=== PATIENT | female | born 1980 ===

== ENCOUNTER 2016-12-28 11:28 | Emergency (ER) | payer SELFPAY ==
[2016-12-28 11:34] VITALS: BP 112/74; PULSE 77; RESP 18; TEMP 98.2; O2SAT 99; BMI 26.2
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
== END 2016-12-28 13:18 | disposition home or self-care (01) ==
LOC: H.ER 11:28
DX: F07.81 Postconcussional syndrome (principal); S09.90XA Unspecified injury of head, initial encounter; Y04.8XXA Assault by other bodily force, initial encounter; R09.81 Nasal congestion

== ENCOUNTER 2017-01-06 10:36 | Emergency (ER) | payer SELFPAY ==
[2017-01-06 10:36] VITALS: BMI 26.2
[2017-01-06 11:13] VITALS: BP 131/85; PULSE 74; RESP 17; TEMP 98.9; O2SAT 100
[2017-01-06] MEDS ORDERED: Sodium Chloride 0.9% 1,000 ML IV STA (12:09)
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
[2017-01-06 12:59] LABS: BASO # 0.1 K/uL (0.0-0.2); BASO % 0.4 % (0.0-2.0); EOS # 0.1 K/uL (0.0-0.7); EOS % 0.5 % (0.0-4.0); HEMATOCRIT 37.9 % (34.0-47.0); LYMPH # 1.8 K/uL (1.0-4.3); LYMPH % 15.4 % (20.0-40.0); MEAN CELL VOLUME 89.1 fl (81.0-99.0); MEAN CORPUSCULAR HEMOGLOBIN 30.4 pg (27.0-31.0); MEAN CORPUSCULAR HGB CONC 34.1 g/dL (33.0-37.0); MEAN PLATELET VOLUME 8.1 fl (7.2-11.7); MONO # 0.5 K/uL (0.0-0.8); MONO % 4.2 % (0.0-10.0); NEUT # 9.2 K/uL (1.8-7.0); NEUT % 79.5 % (50.0-75.0); RED CELL DISTRIBUTION WIDTH 13.7 % (11.5-14.5); WHITE BLOOD COUNT 11.5 K/uL (4.8-10.8)
[2017-01-06 13:10] LABS: ALB/GLOB RATIO 1.2 (1.0-2.1); ALKALINE PHOSPHATASE 67 U/L (38-126); ALT/SGPT 44 U/L (9-52); AST/SGOT 34 U/L (14-36); BILIRUBIN,TOTAL 0.6 mg/dl (0.2-1.3); BLOOD UREA NITROGEN 9 mg/dl (7-17); CALCIUM 9.4 mg/dL (8.4-10.2); CARBON DIOXIDE 25 mmol/L (22-30); CHLORIDE 103 mmol/L (98-107); GFR AFRICAN-AMERICAN > 60; GLUCOSE,RANDOM 112 mg/dL (65-105); POTASSIUM 4.1 MMOL/L (3.6-5.0); SODIUM 142 mmol/l (132-148); TOTAL PROTEIN 9.1 G/DL (6.3-8.2)
== END 2017-01-06 14:33 | disposition home or self-care (01) ==
LOC: H.ER 10:36
DX: F07.81 Postconcussional syndrome (principal); R42 Dizziness and giddiness; R11.10 Vomiting, unspecified

== ENCOUNTER 2017-06-14 21:26 | Inpatient (IN) | payer MEDICAID, OTHER ==
[2017-06-14 21:26] VITALS: BMI 26.2
[2017-06-14 23:12] LABS: BASO # 0.1 K/uL (0.0-0.2); BASO % 0.6 % (0.0-2.0); EOS # 0.1 K/uL (0.0-0.7); EOS % 1.2 % (0.0-4.0); HEMATOCRIT 14.3 % (34.0-47.0); LYMPH # 2.4 K/uL (1.0-4.3); LYMPH % 25.9 % (20.0-40.0); MEAN CELL VOLUME 82.8 fl (81.0-99.0); MEAN CORPUSCULAR HEMOGLOBIN 26.2 pg (27.0-31.0); MEAN CORPUSCULAR HGB CONC 31.6 g/dL (33.0-37.0); MEAN PLATELET VOLUME 8.3 fl (7.2-11.7); MONO # 0.9 K/uL (0.0-0.8); MONO % 9.8 % (0.0-10.0); NEUT # 5.9 K/uL (1.8-7.0); NEUT % 62.5 % (50.0-75.0); NRBC % 0.6 % (0.0-0.0); RED CELL DISTRIBUTION WIDTH 15.7 % (11.5-14.5); WHITE BLOOD COUNT 9.4 K/uL (4.8-10.8)
[2017-06-14 23:22] LABS: ALB/GLOB RATIO 1.2 (1.0-2.1); ALKALINE PHOSPHATASE 47 U/L (38-126); ALT/SGPT 46 U/L (9-52); AST/SGOT 22 U/L (14-36); BILIRUBIN,TOTAL < 0.1 mg/dl (0.2-1.3); BLOOD UREA NITROGEN 8 mg/dl (7-17); CALCIUM 8.3 mg/dL (8.4-10.2); CARBON DIOXIDE 23 mmol/L (22-30); CHLORIDE 106 mmol/L (98-107); GFR AFRICAN-AMERICAN > 60; GLUCOSE,RANDOM 130 mg/dL (65-105); POTASSIUM 3.6 MMOL/L (3.6-5.0); SODIUM 140 mmol/l (132-148); TOTAL PROTEIN 6.9 G/DL (6.3-8.2)
[2017-06-14] MEDS ORDERED: Sodium Chloride 0.9% 1,000 ML IV STA (23:32)
--- NOTE | 2017-06-14 23:47 | ED PDOC ---
HPI: Female Pain Time Seen by Provider: 06/14/17 22:04 Chief Complaint (Nursing): Female Genitourinary Chief Complaint (Provider): Vaginal bleeding History Per: Patient History/Exam Limitations: no limitations Onset/Duration Of Symptoms: Persistent (1.5 months) Current Symptoms Are (Timing): Still Present Associated Symptoms: Nausea, Vomiting Alleviating Factors: None Additional History Per: Patient Additional Complaint(s): 36yo female, presents to the ED for evaluation of vaginal bleeding for the past month and half. Patient states initially she had been using 4 pads per day but over the past week, she had very heavy bleeding with clots and has been using 8 pads per day. She reports associated light headedness, feeling like she will fall down, headache, cramping, nausea, and had an episode of vomiting this morning. She also reports dyspnea on exertion, but denies chest pain. She reports a history of multiple fibroids in her uterus and was recently started on control pills in attempt to control the bleeding. Patient denies bleeding from any other locations. She was last seen in the women's health clinic in April. She offers no other complaints. PCP: [facility] Abnormal Vaginal Bleeding: Yes Last Menstral Period: currently having her menstrual peroid Past Medical History Reviewed: Historical Data, Nursing Documentation, Vital Signs Vital Signs: Last Vital Signs Temp 98.0 F 06/14/17 21:48 Pulse 88 06/14/17 23:24 Resp 16 06/14/17 23:24 BP 124/71 06/14/17 23:24 Pulse Ox 100 06/14/17 23:24 - Medical History PMH: Denies: Chronic Kidney Disease Other PMH: Uterine Fibroids - Surgical History Surgical History: Cholecystectomy, (x 1) - Family History Family History: States: No Known Family Hx - Living Arrangements Living Arrangements: With Family - Social History Current smoker - smoking cessation education provided: No Ex-Smoker (has not smoked in the last 12 months): No Alcohol: None Drugs: Denies - Home Medications Home Medications: Ambulatory Orders Medication Instructions Recorded Norethindrone-Ethinyl Estrad 1 tab PO DAILY 06/14/17 [Dasetta 1-35-28 Tablet] - Allergies Allergies/Adverse Reactions: Allergies Allergy/AdvReac Type Severity Reaction Status Date / Time No Known Allergies Allergy Verified 06/14/17 21:48 Review of Systems ROS Statement: Except As Marked, All Systems Reviewed And Found Negative (as per HPI) Cardiovascular: Positive for: Light Headedness. Negative for: Chest Pain Respiratory: Positive for: SOB with Exertion Gastrointestinal: Positive for: Nausea, Vomiting Genitourinary Female: Positive for: Vaginal Bleeding Physical Exam - Reviewed Nursing Documentation Reviewed: Yes Vital Signs Reviewed: Yes - Physical Exam Appears: Positive for: In Acute Distress Head Exam: Positive for: ATRAUMATIC, NORMOCEPHALIC Skin: Positive for: Warm, Pallor Eye Exam: Positive for: EOMI, PERRL ENT: Positive for: Other (dry mucus membranes). Negative for: Pharyngeal Erythema, Tonsillar Exudate Neck: Positive for: Painless ROM, Supple Cardiovascular/Chest: Positive for: Regular Rate, Rhythm, Chest Non Tender. Negative for: Murmur Respiratory: Positive for: Normal Breath Sounds. Negative for: Respiratory Distress Gastrointestinal/Abdominal: Positive for: Soft. Negative for: Tenderness Pelvic Exam: Positive for: Other (deferred to failure analysis engineer) Back: Positive for: Normal Inspection. Negative for: Decreased ROM Extremity: Positive for: Normal ROM. Negative for: Deformity Lymphatic: Negative for: Adenopathy Neurologic/Psych: Positive for: Alert. Negative for: Motor/Sensory Deficits - Laboratory Results Result Diagrams: 06/15/17 17:55 06/15/17 05:30 Interpretation Of Abn Labs: PLEASE NOTE: LABS ABOVE ARE NOT THE LABS AT THE TIME OF ER EVALUATION - ECG ECG: Positive for: Interpreted By Me, Viewed By Me ECG Rhythm: Positive for: Sinus Rhythm, Right Bundle Branch Block Interpretation Of Abn EKG: T- wave inversion through V3 Rate: 93 O2 Sat by Pulse Oximetry: 100 (RA) Pulse Ox Interpretation: Normal - Critical Care Total Time (In Min): 30 Documented Critical Care: Time excludes all time spent performint seperately billable procedures Medical Decision Making Medical Decision Making: Time: 2205 Impression: Vaginal bleeding and anemia Plan: -- Labs -- Chest x-ray -- IV Fluids Reassess Time: 0 Labs reviewed and indicate hemoglobin levels of 4.5 Discussed findings with patient and transfusion consent signed. 2 units of cross matched RBC ordered. Case discussed with family practice resident, PEST CONTROL OPERATOR furnace mason and hospitalist furnace mason. Patient to be admitted to ICU. Scribe Attestation: Documented by Khadijah Melo acting as a scribe for Davina Chang MD. Provider Attestation: All medical record entries made by the Scribe were at my direction and personally dictated by me. I have reviewed the chart and agree that the record accurately reflects my personal performance of the history, physical exam, medical decision making, and the department course for this patient. I have also personally directed, reviewed, and agree with the discharge instructions and disposition. Disposition - Clinical Impression Clinical Impression: Anemia, Vaginal bleeding - Patient ED Disposition Is Patient to be Admitted: Yes Counseled Patient/Family Regarding: Studies Performed, Diagnosis - Disposition Disposition Time: 23:30 Condition: CRITICAL - Pt Status Changed To: Hospital Disposition Of: Inpatient - Admit Certification Admit to Inpatient:: After my assessment, the patient will require hospitalization for at least two midnights. This is because of the severity of symptoms shown, intensity of services needed, and/or the medical risk in this patient being treated as an outpatient. - POA Present On Arrival: None
[2017-06-14 23:55] LABS: PARTIAL THROMBOPLASTIN TIME 41.4 Seconds (25.6-37.1)
--- NOTE | 2017-06-15 01:06 | CP.PCM.HP ---
History of Present Illness - History of Present Illness History of Present Illness: [facility] [id number] 36 y/o Libyan speaking pt with PMHx of extensive uterine fibroids presented to [facility] ED with a 1.5 month history of worsening vaginal bleeding. Pt reports she had an IUD removed approximately 05/08 at the [facility] and was started on Ortho Novum . She reports the bleeding started as spotting, and gradually worsened. Over the past few weeks she began using 4 pads per day, but this week, the bleeding became so heavy that she needed to use 8 pads. She reports bleeding was accompanied with clots. She reports associated symptoms consisted of worsening weakness and fatigue, lightheadedness , DEAL/palpitations, cramping abdominal pain, and nausea. She denies any other associated chest pain, urinary symptoms, melena, hematochezia, numbness/ tingling. ROS: 12 points reviewed, found to be negative unless mentioned as above PMD: Dr. Dante Lockwood, [facility], last appt 06/11. Seen at [facility] on 2016 PMHx: HLD ALL: NKDA MEDS: Ortho Novum QD PSurgHx: 1 , laparascopic cholecystectomy, denies post-op bleeding problems PHospHx: denies history of prior blood product tranfusions PGynHx: negative Pap in 2014, TV u/s performed on 11/2016 shows uterus size of 5.6x7.1x9.6cm with multiple fibroids located fundally, anteriorly, and posteriorly. LMP: currently menstruating POBHx: , 1 SAB, no history of hemorrhage SocialHx: denies tobacco, etoh, drug abuse. Last day of sexual activity was 3 days ago with , noticed mild vaginal discomfort during coitus. FamilyHx: denies any history of familial bleeding problems, NV, CAD, Stroke, cancer. ED COURSE: Vitals on presentation: T 98 F, HR 102, BP: 148/79, RR 16, POX 100% RA LABS: CBC: H/H: 4.5/14.3 CMP: WNL COAGS: 13.6/1.2/41.4 UPREG: neg UA: mild blood, trace leukocyte esterase IMAGING: EKG: NSR at approx 100bpm, normal axis, with RBBB and T-wave inversions in precordial leads up to V3. (as interpreted by me) CXR: lung kendrick clear b/l, symmetrical, normal cardiac silhouette, normal CXR ( as interpreted by me) MEDS: 1 L NS Bolus 4 Units PRBCs ordered, tranfusion began in ED CONSULTS: ICU hospitalist: Dr. Tejada OBN Hospitalist Dr. Kinsey Due to critically low Hb and active bleeding, pt was admitted to ICU Pt seen and case discussed with Dr. Tejada, whom agrees plan. Present on Admission - Present on Admission Any Indicators Present on Admission: No Past Patient History - Past Medical History & Family History Past Medical History?: Yes - Past Social History Alcohol: None Drugs: Denies - CARDIAC Hx Cardiac Disorders: No - PULMONARY Hx Respiratory Disorders: No - NEUROLOGICAL Hx Neurological Disorder: No - HEENT Hx HEENT Problems: No - RENAL Hx Chronic Kidney Disease: No - ENDOCRINE/METABOLIC Hx Endocrine Disorders: No - HEMATOLOGICAL/ONCOLOGICAL Hx Blood Disorders: No - INTEGUMENTARY Hx Dermatological Problems: No - MUSCULOSKELETAL/RHEUMATOLOGICAL Hx Musculoskeletal Disorders: No Hx Falls: No - GENITOURINARY/GYNECOLOGICAL Hx Genitourinary Disorders: Yes Other/Comment: fibroids - PSYCHIATRIC Hx Psychophysiologic Disorder: No Hx Substance Use: No - SURGICAL HISTORY Hx Cholecystectomy: Yes - ANESTHESIA Hx Anesthesia: Yes Hx Anesthesia Reactions: No Hx Malignant Hyperthermia: No Meds Allergies/Adverse Reactions: Allergies Allergy/AdvReac Type Severity Reaction Status Date / Time No Known Allergies Allergy Verified 06/14/17 21:48 Physical Exam - Constitutional Appears: Non-toxic, No Acute Distress - Head Exam Head Exam: ATRAUMATIC - Eye Exam Eye Exam: EOMI. absent: Conjunctival injection, Scleral icterus Pupil Exam: PERRL - ENT Exam ENT Exam: Mucous Membranes Moist - Respiratory Exam Respiratory Exam: Clear to Auscultation Bilateral, NORMAL BREATHING PATTERN. absent: Accessory Muscle Use, Rales, Rhonchi, Wheezes - Cardiovascular Exam Cardiovascular Exam: REGULAR RHYTHM, RRR, +S1, +S2, Systolic Murmur (flow murmur ). absent: Tachycardia, Irregular Rhythm, JVD, Rubs, +S4 - GI/Abdominal Exam GI & Abdominal Exam: Normal Bowel Sounds, Soft. absent: Distended, Firm, Guarding, Rigid, Tenderness - Extremities Exam Extremities exam: Positive for: normal capillary refill, normal inspection, pedal pulses present. Negative for: calf tenderness, pedal edema - Back Exam Back exam: NORMAL INSPECTION - Neurological Exam Neurological exam: Alert, CN II-XII Intact, Oriented x3, Reflexes Normal - Psychiatric Exam Psychiatric exam: Normal Affect, Normal Mood - Skin Skin Exam: Dry, Intact, Pallor, Warm Results - Vital Signs Recent Vital Signs: Last Vital Signs Temp 98.0 F 06/14/17 21:48 Pulse 93 H 06/15/17 00:12 Resp 16 06/15/17 00:12 BP 124/71 06/15/17 00:12 Pulse Ox 100 06/14/17 23:57 - Labs Result Diagrams: 06/14/17 22:50 06/14/17 22:50 Labs: Laboratory Results - last 24 hr 06/14/17 06/14/17 06/14/17 22:41 22:50 22:50 WBC 9.4 RBC 1.72 L Hgb 4.5 L* D Hct 14.3 L MCV 82.8 D MCH 26.2 L MCHC 31.6 L RDW 15.7 H Plt Count 305 MPV 8.3 Neut % (Auto) 62.5 Lymph % (Auto) 25.9 Coles % (Auto) 9.8 Eos % (Auto) 1.2 Baso % (Auto) 0.6 Neut # 5.9 Lymph # 2.4 Coles # 0.9 H Eos # 0.1 Baso # 0.1 PT INR APTT Sodium 140 Potassium 3.6 Chloride 106 Carbon Dioxide 23 Anion Gap 14 BUN 8 Creatinine 0.5 L Est GFR ( Amer) > 60 Est GFR (Non-Af Amer) > 60 Random Glucose 130 H Calcium 8.3 L Total Bilirubin < 0.1 L AST 22 ALT 46 Alkaline Phosphatase 47 Total Protein 6.9 Albumin 3.7 Globulin 3.2 Albumin/Globulin Ratio 1.2 Blood Type O POSITIVE Antibody Screen Negative Crossmatch IS Only See Detail BBK History Checked Patient has bt 06/14/17 22:50 WBC RBC Hgb Hct MCV MCH MCHC RDW Plt Count MPV Neut % (Auto) Lymph % (Auto) Coles % (Auto) Eos % (Auto) Baso % (Auto) Neut # Lymph # Coles # Eos # Baso # PT 13.6 H INR 1.2 APTT 41.4 H Sodium Potassium Chloride Carbon Dioxide Anion Gap BUN Creatinine Est GFR ( Amer) Est GFR (Non-Af Amer) Random Glucose Calcium Total Bilirubin AST ALT Alkaline Phosphatase Total Protein Albumin Globulin Albumin/Globulin Ratio Blood Type Antibody Screen Crossmatch IS Only BBK History Checked Assessment & Plan - Assessment and Plan (Free Text) Assessment: 36 y/o with a PMHx of uterine fibroids admitted for severe symptomatic anemia secondary to acute vaginal blood loss. Plan: 1) Symptomatic Anemia -secondary to acute blood loss -H/H on presentation: 4.5/14.3, this is down from 12.9/37.9 in 12/2016 -4 units PRBCs ordered -admitted to ICU for further monitoring -Zofran 4mg IVP Q6H for nausea -Acetominphen 650mg Q6H for fever/pain -regular diet -F/u CBC/coags/CMP in AM -monitor vitals Q4 hrs -f/u TSH, Iron studies, VwF, Factor VIII studies -OBGYN consult appreciated, will follow up recommendations 2) Prophylaxis -SCDs PRN -IV protonix 40mg QD
[2017-06-15 06:18] LABS: BASO # 0.1 K/uL (0.0-0.2); BASO % 0.9 % (0.0-2.0); EOS # 0.2 K/uL (0.0-0.7); EOS % 1.3 % (0.0-4.0); LYMPH # 2.9 K/uL (1.0-4.3); MEAN CELL VOLUME 84.1 fl (81.0-99.0); MEAN CORPUSCULAR HEMOGLOBIN 27.5 pg (27.0-31.0); MEAN CORPUSCULAR HGB CONC 32.7 g/dL (33.0-37.0); MEAN PLATELET VOLUME 8.3 fl (7.2-11.7); MONO # 0.8 K/uL (0.0-0.8); NEUT # 7.7 K/uL (1.8-7.0); NEUT % 65.8 % (50.0-75.0); RED CELL DISTRIBUTION WIDTH 14.8 % (11.5-14.5); WHITE BLOOD COUNT 11.8 K/uL (4.8-10.8)
[2017-06-15 06:30] LABS: ALB/GLOB RATIO 1.1 (1.0-2.1); ALKALINE PHOSPHATASE 44 U/L (38-126); ALT/SGPT 48 U/L (9-52); AST/SGOT 47 U/L (14-36); BILIRUBIN,TOTAL 0.4 mg/dl (0.2-1.3); BLOOD UREA NITROGEN 6 mg/dl (7-17); CALCIUM 7.8 mg/dL (8.4-10.2); CARBON DIOXIDE 22 mmol/L (22-30); CHLORIDE 110 mmol/L (98-107); GFR AFRICAN-AMERICAN > 60; GLUCOSE,RANDOM 113 mg/dL (65-105); POTASSIUM 3.6 MMOL/L (3.6-5.0); SODIUM 141 mmol/l (132-148); TOTAL PROTEIN 6.3 G/DL (6.3-8.2)
--- NOTE | 2017-06-15 07:26 | RAD ---
HISTORY: severe anemia COMPARISON: No prior. FINDINGS: LUNGS: No active pulmonary disease. PLEURA: No significant pleural effusion identified, no pneumothorax apparent. CARDIOVASCULAR: Normal. OSSEOUS STRUCTURES: No significant abnormalities. VISUALIZED UPPER ABDOMEN: Normal. OTHER FINDINGS: None. IMPRESSION: No active disease.
--- NOTE | 2017-06-15 08:07 | CP.CCUPN ---
CCU Subjective - Physician Review Subjective (Free Text): ICU admission and consultation: discussed with Night Hospitalist MD: 36F admitted for severe anemia and vaginal bleeding; worsened over the past 24h prior to admission, but had [employer]EL[employer] procedure done approx. 1 month ago ( uterine fibroids-D&C, IUD removal) and has had unrelenting bleeding since that time. c/ o Generalized weakness and dizziness, less so this Am, Now, receiving 3rd of 4 ordered PRBCs units. Denies any headaches, CP, SOB, rash, fever, chills, abdominal-pelvic pain or change in BMs. Other vitals and I/O's reviewed. Allergies: NKDA ROS: No other pertinent negs or positives on 10+ system review. Outpt Meds: [facility] [place] ----All Nursing and physician documentation reviewed to date; no new pertinent info noted relevant to current medical problems. MAJOR PROBLEMS: 1. Chronic Vaginal / uterine Bleeding 2. Severe Anemia 2 #1, r/o concomitant Fe deficiency state 3. Coagulopathy versus lab error?? PLAN: 1. No severe, massive active bleeding now. PRBCs infusing, IVF hydration. 2. Check repeat coags with full PT, INR and PTT panel. 3. Stable for transfer to regular med/surg bed for further mgmt. and observation. No need for hemodynamic monitoring, no other co-morbidities requiring ICU intervention. CCU Objective - Vital Signs / Intake & Output Vital Signs (Last 4 hours): Vital Signs Temp Pulse Resp BP Pulse Ox 06/15/17 08:00 98.6 F 71 16 104/62 100 06/15/17 06:00 124 H 15 137/77 100 Intake and Output (Last 8hrs): Intake & Output 06/14/17 06/15/17 06/15/17 22:59 06:59 14:59 Intake Total 650 Output Total 500 Balance 150 Weight 131 lb Intake: Blood Product 650 Output: Urine 500 Urine, Voided 500 Other: # Voids Urine, Voided 1 - Physical Exam Head: Positive for: Abrasion Pupils: Positive for: PERRL Extroacular Muscles: Positive for: EOMI Conjunctiva: Positive for: Normal. Negative for: Icteric Mouth: Positive for: Moist Mucous Membranes Neck: Positive for: Normal Range of Motion. Negative for: JVD Respiratory/Chest: Positive for: Clear to Auscultation. Negative for: Accessory Muscle Use, Wheezes Cardiovascular: Positive for: Regular Rate and Rhythm, Normal S1, S2 Abdomen: Positive for: Normal Bowel Sounds. Negative for: Tenderness, Distention, Mass/Organomegaly Lower Extremity: Positive for: Normal Inspection, NORMAL PULSES. Negative for: Edema, CALF TENDERNESS, Cyanosis Neurological: Positive for: GCS=15, Motor Func Grossly Intact, Normal Sensory Function Skin: Positive for: Warm, Dry. Negative for: Rashes Psychiatric: Positive for: Alert, Oriented x 3 - Medications Active Medications: Active Medications Generic Name Dose Route Start Last Admin Trade Name Freq PRN Reason Stop Dose Admin Acetaminophen 650 mg 06/15/17 00:34 Tylenol 325mg Tab PO Q6H PRN Fever >100.4 F Estrogens Conjugated 25 mg 06/15/17 01:20 Premarin Iv IV Q4 PRN bleeding Ondansetron HCl 4 mg 06/15/17 00:50 Zofran Inj IVP Q6 PRN Nausea/Vomiting Pantoprazole Sodium 40 mg 06/15/17 09:00 Protonix Inj IVP DAILY VALERAINO - Patient Studies Lab Studies: Lab Studies 06/15/17 06/15/17 06/15/17 Range/Units 05:30 05:30 05:30 WBC 11.8 H (4.8-10.8) K/uL RBC 2.61 L (3.80-5.20) Mil/uL Hgb 7.2 L D (12.0-16.0) g/dL Hct 22.0 L (34.0-47.0) % MCV 84.1 (81.0-99.0) fl MCH 27.5 (27.0-31.0) pg MCHC 32.7 L (33.0-37.0) g/dL RDW 14.8 H (11.5-14.5) % Plt Count 246 (130-400) K/uL MPV 8.3 (7.2-11.7) fl Neut % (Auto) 65.8 (50.0-75.0) % Lymph % (Auto) 25.0 (20.0-40.0) % [place] % (Auto) 7.0 (0.0-10.0) % Eos % (Auto) 1.3 (0.0-4.0) % Baso % (Auto) 0.9 (0.0-2.0) % Neut # 7.7 H (1.8-7.0) K/uL Lymph # 2.9 (1.0-4.3) K/uL [place] # 0.8 (0.0-0.8) K/uL Eos # 0.2 (0.0-0.7) K/uL Baso # 0.1 (0.0-0.2) K/uL PT 12.2 (9.8-13.1) Seconds INR 1.1 (0.9-1.2) APTT (25.6-37.1) Seconds Sodium 141 (132-148) mmol/l Potassium 3.6 (3.6-5.0) MMOL/L Chloride 110 H (98-107) mmol/L Carbon Dioxide 22 (22-30) mmol/L Anion Gap 13 (10-20) BUN 6 L (7-17) mg/dl Creatinine 0.5 L (0.7-1.2) mg/dL Est GFR ( Amer) > 60 Est GFR (Non-Af Amer) > 60 Random Glucose 113 H (65-105) mg/dL Calcium 7.8 L (8.4-10.2) mg/dL Total Bilirubin 0.4 (0.2-1.3) mg/dl AST 47 H D (14-36) U/L ALT 48 (9-52) U/L Alkaline Phosphatase 44 (38-126) U/L Total Protein 6.3 (6.3-8.2) G/DL Albumin 3.4 L (3.5-5.0) g/dL Globulin 3.0 (2.2-3.9) gm/dL Albumin/Globulin Ratio 1.1 (1.0-2.1) Blood Type Antibody Screen Crossmatch IS Only BBK History Checked 06/14/17 06/14/17 06/14/17 Range/Units 22:50 22:50 22:50 WBC 9.4 (4.8-10.8) K/uL RBC 1.72 L (3.80-5.20) Mil/uL Hgb 4.5 L* D (12.0-16.0) g/dL Hct 14.3 L (34.0-47.0) % MCV 82.8 D (81.0-99.0) fl MCH 26.2 L (27.0-31.0) pg MCHC 31.6 L (33.0-37.0) g/dL RDW 15.7 H (11.5-14.5) % Plt Count 305 (130-400) K/uL MPV 8.3 (7.2-11.7) fl Neut % (Auto) 62.5 (50.0-75.0) % Lymph % (Auto) 25.9 (20.0-40.0) % [place] % (Auto) 9.8 (0.0-10.0) % Eos % (Auto) 1.2 (0.0-4.0) % Baso % (Auto) 0.6 (0.0-2.0) % Neut # 5.9 (1.8-7.0) K/uL Lymph # 2.4 (1.0-4.3) K/uL [place] # 0.9 H (0.0-0.8) K/uL Eos # 0.1 (0.0-0.7) K/uL Baso # 0.1 (0.0-0.2) K/uL PT 13.6 H (9.8-13.1) Seconds INR 1.2 (0.9-1.2) APTT 41.4 H (25.6-37.1) Seconds Sodium 140 (132-148) mmol/l Potassium 3.6 (3.6-5.0) MMOL/L Chloride 106 (98-107) mmol/L Carbon Dioxide 23 (22-30) mmol/L Anion Gap 14 (10-20) BUN 8 (7-17) mg/dl Creatinine 0.5 L (0.7-1.2) mg/dL Est GFR ( Amer) > 60 Est GFR (Non-Af Amer) > 60 Random Glucose 130 H (65-105) mg/dL Calcium 8.3 L (8.4-10.2) mg/dL Total Bilirubin < 0.1 L (0.2-1.3) mg/dl AST 22 (14-36) U/L ALT 46 (9-52) U/L Alkaline Phosphatase 47 (38-126) U/L Total Protein 6.9 (6.3-8.2) G/DL Albumin 3.7 (3.5-5.0) g/dL Globulin 3.2 (2.2-3.9) gm/dL Albumin/Globulin Ratio 1.2 (1.0-2.1) Blood Type Antibody Screen Crossmatch IS Only BBK History Checked 06/14/17 Range/Units 22:41 WBC (4.8-10.8) K/uL RBC (3.80-5.20) Mil/uL Hgb (12.0-16.0) g/dL Hct (34.0-47.0) % MCV (81.0-99.0) fl MCH (27.0-31.0) pg MCHC (33.0-37.0) g/dL RDW (11.5-14.5) % Plt Count (130-400) K/uL MPV (7.2-11.7) fl Neut % (Auto) (50.0-75.0) % Lymph % (Auto) (20.0-40.0) % [place] % (Auto) (0.0-10.0) % Eos % (Auto) (0.0-4.0) % Baso % (Auto) (0.0-2.0) % Neut # (1.8-7.0) K/uL Lymph # (1.0-4.3) K/uL [place] # (0.0-0.8) K/uL Eos # (0.0-0.7) K/uL Baso # (0.0-0.2) K/uL PT (9.8-13.1) Seconds INR (0.9-1.2) APTT (25.6-37.1) Seconds Sodium (132-148) mmol/l Potassium (3.6-5.0) MMOL/L Chloride (98-107) mmol/L Carbon Dioxide (22-30) mmol/L Anion Gap (10-20) BUN (7-17) mg/dl Creatinine (0.7-1.2) mg/dL Est GFR ( Amer) Est GFR (Non-Af Amer) Random Glucose (65-105) mg/dL Calcium (8.4-10.2) mg/dL Total Bilirubin (0.2-1.3) mg/dl AST (14-36) U/L ALT (9-52) U/L Alkaline Phosphatase (38-126) U/L Total Protein (6.3-8.2) G/DL Albumin (3.5-5.0) g/dL Globulin (2.2-3.9) gm/dL Albumin/Globulin Ratio (1.0-2.1) Blood Type O POSITIVE Antibody Screen Negative Crossmatch IS Only See Detail BBK History Checked Patient has bt Laboratory Results - last 24 hr 06/14/17 06/14/17 06/14/17 22:41 22:50 22:50 WBC 9.4 RBC 1.72 L Hgb 4.5 L* D Hct 14.3 L MCV 82.8 D MCH 26.2 L MCHC 31.6 L RDW 15.7 H Plt Count 305 MPV 8.3 Neut % (Auto) 62.5 Lymph % (Auto) 25.9 [place] % (Auto) 9.8 Eos % (Auto) 1.2 Baso % (Auto) 0.6 Neut # 5.9 Lymph # 2.4 [place] # 0.9 H Eos # 0.1 Baso # 0.1 PT INR APTT Sodium 140 Potassium 3.6 Chloride 106 Carbon Dioxide 23 Anion Gap 14 BUN 8 Creatinine 0.5 L Est GFR ( Amer) > 60 Est GFR (Non-Af Amer) > 60 Random Glucose 130 H Calcium 8.3 L Total Bilirubin < 0.1 L AST 22 ALT 46 Alkaline Phosphatase 47 Total Protein 6.9 Albumin 3.7 Globulin 3.2 Albumin/Globulin Ratio 1.2 Blood Type O POSITIVE Antibody Screen Negative Crossmatch IS Only See Detail BBK History Checked Patient has bt 06/14/17 06/15/17 06/15/17 22:50 05:30 05:30 WBC 11.8 H RBC 2.61 L Hgb 7.2 L D Hct 22.0 L MCV 84.1 MCH 27.5 MCHC 32.7 L RDW 14.8 H Plt Count 246 MPV 8.3 Neut % (Auto) 65.8 Lymph % (Auto) 25.0 [place] % (Auto) 7.0 Eos % (Auto) 1.3 Baso % (Auto) 0.9 Neut # 7.7 H Lymph # 2.9 [place] # 0.8 Eos # 0.2 Baso # 0.1 PT 13.6 H 12.2 INR 1.2 1.1 APTT 41.4 H Sodium Potassium Chloride Carbon Dioxide Anion Gap BUN Creatinine Est GFR ( Amer) Est GFR (Non-Af Amer) Random Glucose Calcium Total Bilirubin AST ALT Alkaline Phosphatase Total Protein Albumin Globulin Albumin/Globulin Ratio Blood Type Antibody Screen Crossmatch IS Only BBK History Checked 06/15/17 05:30 WBC RBC Hgb Hct MCV MCH MCHC RDW Plt Count MPV Neut % (Auto) Lymph % (Auto) [place] % (Auto) Eos % (Auto) Baso % (Auto) Neut # Lymph # [place] # Eos # Baso # PT INR APTT Sodium 141 Potassium 3.6 Chloride 110 H Carbon Dioxide 22 Anion Gap 13 BUN 6 L Creatinine 0.5 L Est GFR ( Amer) > 60 Est GFR (Non-Af Amer) > 60 Random Glucose 113 H Calcium 7.8 L Total Bilirubin 0.4 AST 47 H D ALT 48 Alkaline Phosphatase 44 Total Protein 6.3 Albumin 3.4 L Globulin 3.0 Albumin/Globulin Ratio 1.1 Blood Type Antibody Screen Crossmatch IS Only BBK History Checked Review of Systems - Review of Systems All systems: reviewed and no additional remarkable complaints except (as above) Critical Care Progress Note - Nutrition Nutrition: Nutrition Category Date Time Status Regular Diet [DIET] Diets 06/15/17 Breakfast Active
[2017-06-15 08:08] LABS: IRON 36 ug/dL (37-170)
[2017-06-15 08:10] LABS: THYROID STIMULATING HORMONE 3.29 mIU/ML (0.46-4.68)
[2017-06-15] MEDS ORDERED: Chlorhexidine Gluconate 1 APPL/PKT TP ONE (08:59)
--- NOTE | 2017-06-15 09:08 | CARD ---
APPROVED REPORT EKG Measurement Heart [id number] <Conclusion> Normal sinus rhythm Incomplete right bundle branch block T wave abnormality, consider anterior ischemia Abnormal ECG
--- NOTE | 2017-06-15 10:00 | CP.PCM.CON ---
Addendum entered and electronically signed by Brandt Cruz MD 06/15/17 17:18: . Addendum entered and electronically signed by Brandt Cruz MD 06/15/17 14:01: Update for plan of treatment. Discussed with Dr. Vincent: Bleeding is controlled. Follow up H/H s/p 4 units of PRBC. Pt encouraged to follow up in outpatient clinic. Recommend: hysteroscopic myomectomy. Addendum entered and electronically signed by Brandt Cruz MD 06/15/17 10:47: Case discussed with Dr. Kinsey. Original Note: <Brandt Cruz - Last Filed: 06/15/17 10:45> History of Present Illness - History of Present Illness History of Present Illness: Pam Cheney is a pleasant 36 yo lady who presented to the ED due to weakness, dizziness, nausea, SOB s/p vaginal bleed. LMP 06/03/2017 with heavy bleeding containing clots for 10 day duration. Menses is irregular. OCPs (Ortho-Novum 1mg/35mcg) started 05/08/2017; Denies perimenstrual spotting/bleed. She shares of receiving OCP via injection around 6 + years ago. Unknown if it was depo. Pt was last seen by Dr. Sigala on 05/08/2017 for irregular menses and for IUD ( mirena placed 2010) removal due to pelvic pain; TVUS: on 12/20/2016: (6) fibroids: Fundal fibroid 3.4x5.6x9.6; ant fibroid in body of uterus 1.2x1.96; submucosal 10mm; submucosal posterior 12mm; posterior fibroid at lower uterine segment 16mm; posterior fibroid 7mm; ObHx: term NVD x2: 2004 M; 2010 F; c/s term due to breech presentation 2006 F; Denies history of STI; last pap was 1 year ago: negative. PMHx: none PFHx: Mother with ovarian cyst; negative for DM/HTN/Cancer/myoma PSurgHx: Laparoscopic cholecystectomy, Section SocHx: Denies smoking/alcohol/illicit drugs meds: not taking any medications Allergies: NKDA Initial Hgb: 4.5/14.3 Ordered to Transfuse 4 units After 2 units transfused: Hgb: 7.2/22.0 Review of Systems - Review of Systems Systems not reviewed;Unavailable: Language Barrier - Constitutional Constitutional: As Per HPI - Reproductive: Female Reproductive:Female: Heavy Menses, Abnormal Vaginal Bleeding - Menstruation Menstruation: Abnormal Vaginal Bleeding Past Patient History - Past Medical History & Family History Past Medical History?: Yes Pertinent Family History: Mother with ovarian cysts - Past Social History Smoking Status: Never Smoked Alcohol: None Drugs: Denies Home Situation {Lives}: With Family - CARDIAC Hx Cardiac Disorders: No Hx Heart Attack: No - PULMONARY Hx Respiratory Disorders: No - NEUROLOGICAL Hx Neurological Disorder: No HX Cerebrovascular Accident: No Other/Comment: No history of stroke - HEENT Hx HEENT Problems: No - RENAL Hx Chronic Kidney Disease: No - ENDOCRINE/METABOLIC Hx Endocrine Disorders: No - HEMATOLOGICAL/ONCOLOGICAL Hx Blood Disorders: No Other/Comment: no history of DVT/clots/hypercoaguability - INTEGUMENTARY Hx Dermatological Problems: No - MUSCULOSKELETAL/RHEUMATOLOGICAL Hx Musculoskeletal Disorders: No Hx Falls: No - GENITOURINARY/GYNECOLOGICAL Hx Genitourinary Disorders: Yes Other/Comment: fibroids - PSYCHIATRIC Hx Psychophysiologic Disorder: No Hx Substance Use: No - SURGICAL HISTORY Hx Section: Yes (2006) Hx Cholecystectomy: Yes - ANESTHESIA Hx Anesthesia: Yes Hx Anesthesia Reactions: No Hx Malignant Hyperthermia: No Meds Allergies/Adverse Reactions: Allergies Allergy/AdvReac Type Severity Reaction Status Date / Time No Known Allergies Allergy Verified 06/14/17 21:48 - Medications Medications: Current Medications Acetaminophen (Tylenol 325mg Tab) 650 mg PO Q6H PRN PRN Reason: Fever >100.4 F Estrogens Conjugated (Premarin Iv) 25 mg IV Q4 PRN PRN Reason: bleeding Ondansetron HCl (Zofran Inj) 4 mg IVP Q6 PRN PRN Reason: Nausea/Vomiting Pantoprazole Sodium (Protonix Inj) 40 mg IVP DAILY VALERIANO Last Admin: 06/15/17 08:38 Dose: 40 mg Physical Exam - Eye Exam Eye Exam: EOMI, Normal appearance - Neck Exam Neck exam: Positive for: Full Rom - Respiratory Exam Respiratory Exam: Clear to Auscultation Bilateral, NORMAL BREATHING PATTERN - Cardiovascular Exam Cardiovascular Exam: REGULAR RHYTHM, +S1, +S2 - GI/Abdominal Exam GI & Abdominal Exam: Normal Bowel Sounds, Soft - Exam Speculum exam: Vaginal Bleeding. absent: Foreign Body, Laceration Bimanual exam: absent: Cervical Motion Tendernes - Extremities Exam Extremities exam: Positive for: normal inspection. Negative for: calf tenderness, pedal edema - Back Exam Back exam: absent: CVA tenderness (L), CVA tenderness (R) - Neurological Exam Neurological exam: Alert, Oriented x3 - Psychiatric Exam Psychiatric exam: Normal Affect, Normal Mood Results - Vital Signs Recent Vital Signs: Last Vital Signs Temp 98.6 F 06/15/17 08:00 Pulse 71 06/15/17 08:00 Resp 16 06/15/17 08:00 BP 104/62 06/15/17 08:00 Pulse Ox 100 06/15/17 08:00 - Labs Result Diagrams: 06/15/17 05:30 06/15/17 05:30 Labs: Laboratory Results - last 24 hr 06/14/17 06/14/17 06/14/17 22:41 22:50 22:50 WBC 9.4 RBC 1.72 L Hgb 4.5 L* D Hct 14.3 L MCV 82.8 D MCH 26.2 L MCHC 31.6 L RDW 15.7 H Plt Count 305 MPV 8.3 Neut % (Auto) 62.5 Lymph % (Auto) 25.9 [place] % (Auto) 9.8 Eos % (Auto) 1.2 Baso % (Auto) 0.6 Neut # 5.9 Lymph # 2.4 [place] # 0.9 H Eos # 0.1 Baso # 0.1 PT INR APTT Sodium 140 Potassium 3.6 Chloride 106 Carbon Dioxide 23 Anion Gap 14 BUN 8 Creatinine 0.5 L Est GFR ( Amer) > 60 Est GFR (Non-Af Amer) > 60 Random Glucose 130 H Calcium 8.3 L Iron TIBC % Saturation Ferritin Total Bilirubin < 0.1 L AST 22 ALT 46 Alkaline Phosphatase 47 Total Protein 6.9 Albumin 3.7 Globulin 3.2 Albumin/Globulin Ratio 1.2 TSH 3rd Generation Blood Type O POSITIVE Antibody Screen Negative Crossmatch IS Only See Detail BBK History Checked Patient has bt 06/14/17 06/15/17 06/15/17 22:50 05:30 05:30 WBC 11.8 H RBC 2.61 L Hgb 7.2 L D Hct 22.0 L MCV 84.1 MCH 27.5 MCHC 32.7 L RDW 14.8 H Plt Count 246 MPV 8.3 Neut % (Auto) 65.8 Lymph % (Auto) 25.0 [place] % (Auto) 7.0 Eos % (Auto) 1.3 Baso % (Auto) 0.9 Neut # 7.7 H Lymph # 2.9 [place] # 0.8 Eos # 0.2 Baso # 0.1 PT 13.6 H 12.2 INR 1.2 1.1 APTT 41.4 H Sodium Potassium Chloride Carbon Dioxide Anion Gap BUN Creatinine Est GFR ( Amer) Est GFR (Non-Af Amer) Random Glucose Calcium Iron TIBC % Saturation Ferritin Total Bilirubin AST ALT Alkaline Phosphatase Total Protein Albumin Globulin Albumin/Globulin Ratio TSH 3rd Generation Blood Type Antibody Screen Crossmatch IS Only BBK History Checked 06/15/17 06/15/17 05:30 05:30 WBC RBC Hgb Hct MCV MCH MCHC RDW Plt Count MPV Neut % (Auto) Lymph % (Auto) [place] % (Auto) Eos % (Auto) Baso % (Auto) Neut # Lymph # [place] # Eos # Baso # PT INR APTT Sodium 141 Potassium 3.6 Chloride 110 H Carbon Dioxide 22 Anion Gap 13 BUN 6 L Creatinine 0.5 L Est GFR ( Amer) > 60 Est GFR (Non-Af Amer) > 60 Random Glucose 113 H Calcium 7.8 L Iron 36 L TIBC 390 % Saturation 9 L Ferritin 3.4 L Total Bilirubin 0.4 AST 47 H D ALT 48 Alkaline Phosphatase 44 Total Protein 6.3 Albumin 3.4 L Globulin 3.0 Albumin/Globulin Ratio 1.1 TSH 3rd Generation 3.29 Blood Type Antibody Screen Crossmatch IS Only BBK History Checked Assessment & Plan - Assessment and Plan (Free Text) Plan: Pam Cheney is a pleasant 36 yo lady who presented with symptomatic anemia 2/2 vaginal bleeding. Pt seen and evaluated at bedside s/p 2 units of PRBC. 1) Abnormal Uterine Bleed -IUD Mirena removed 05/08/2017 -Started on Ortho-Novum 05/08/2017 -Menstral bleed with clots x 10 days -Hx of several fibroids, 2 submucosal 2)Symptomatic Anemia - 2/2 Abnormal vaginal bleed likely from submucosal fibromas (x2) - 4 units of PRBC orded; 2 already given. - Premarin IV - follow repeat H/H and coagulation studies - continue monitoring symptoms of weakness, dizziness, Headaches, vaginal bleed , pelvic pain - Vitals stable; continue to monitor Discussed with patient about options for treatment which includes: - changing OCP - hysteroscopy with resection of submucosal fibroids - partial hysterectomy was also present in the room; Brandt Cruz, PGY1 <Lisa Kinsey S - Last Filed: 06/16/17 10:24> History of Present Illness - History of Present Illness History of Present Illness: Late Entry: Patient seen and examined by me on 06/14/[address] Glez, PGY 1. Patient states when she had the Mirena IUD she did not have problems with bleeding however she needed it removed because time had she actually waited 1 additional year for removal and had removed at 6 years and also for complaints of pelvic pain. Following removal of her IUD she was started on oral contraceptive pills by Dr. Jovon hutchinson. Patient states complaints of heavy bleeding associated with clot since the 10th of this month she states that for the past week the bleeding had increased and was associated with acute shortness of breath and lightheadedness she denies loss of consciousness. I: Menorrhagia most likely secondary to submucosal fibroids Symptomatic anemia Plan: Meds - Medications Medications: Current Medications Acetaminophen (Tylenol 325mg Tab) 650 mg PO Q6H PRN PRN Reason: Fever >100.4 F Estrogens Conjugated (Premarin Iv) 25 mg IV Q4 PRN PRN Reason: bleeding Ondansetron HCl (Zofran Inj) 4 mg IVP Q6 PRN PRN Reason: Nausea/Vomiting Pantoprazole Sodium (Protonix Inj) 40 mg IVP DAILY VALERIANO Last Admin: 06/16/17 08:19 Dose: 40 mg Physical Exam - Head Exam Head Exam: ATRAUMATIC, NORMOCEPHALIC - Exam Speculum exam: absent: Vaginal Bleeding (On speculum exam old dark blood was noted within the vault: No active cervical bleeding present) Results - Vital Signs Recent Vital Signs: Last Vital Signs Temp 98.7 F 06/16/17 08:14 Pulse 68 06/16/17 08:14 Resp 19 06/16/17 08:14 BP 113/72 06/16/17 08:14 Pulse Ox 99 06/16/17 08:14 - Labs Result Diagrams: 06/15/17 17:55 06/15/17 05:30 Labs: Laboratory Results - last 24 hr 06/14/17 06/15/17 22:41 17:55 WBC 10.6 RBC 3.59 L Hgb 10.1 L D Hct 29.8 L MCV 82.8 MCH 28.1 MCHC 33.9 RDW 14.6 H Plt Count 237 Blood Type O POSITIVE Antibody Screen Negative Crossmatch IS Only See Detail BBK History Checked Patient has bt Assessment & Plan - Assessment and Plan (Free Text) Assessment: I: Menorrhagia most likely secondary to submucosal fibroids- resolved on presentation Symptomatic anemia Plan: Premarin IV was ordered but not administered secondary to absence of active bleeding. Patient is to follow-up with Dr. Sigala within 1 week for discussion of surgical management with hysteroscopy
[2017-06-15 18:28] LABS: HEMATOCRIT 29.8 % (34.0-47.0); MEAN CELL VOLUME 82.8 fl (81.0-99.0); MEAN CORPUSCULAR HEMOGLOBIN 28.1 pg (27.0-31.0); MEAN CORPUSCULAR HGB CONC 33.9 g/dL (33.0-37.0); RED CELL DISTRIBUTION WIDTH 14.6 % (11.5-14.5); WHITE BLOOD COUNT 10.6 K/uL (4.8-10.8)
[2017-06-16 08:15] VITALS: BP 113/72; RESP 19; TEMP 98.7
--- NOTE | 2017-06-16 08:27 | CP.PCM.DIS ---
Provider - Provider Date of Admission: 06/14/17 23:25 Attending physician: Nando Scott MD Time Spent in preparation of Discharge (in minutes): 35 Diagnosis - Discharge Diagnosis (1) Acute post-hemorrhagic anemia Status: Acute Hospital Course - Lab Results Lab Results: Most Recent Lab Values WBC 10.6 K/uL (4.8-10.8) 06/15/17 17:55 RBC 3.59 Mil/uL (3.80-5.20) L 06/15/17 17:55 Hgb 10.1 g/dL (12.0-16.0) L D 06/15/17 17:55 Hct 29.8 % (34.0-47.0) L 06/15/17 17:55 MCV 82.8 fl (81.0-99.0) 06/15/17 17:55 MCH 28.1 pg (27.0-31.0) 06/15/17 17:55 MCHC 33.9 g/dL (33.0-37.0) 06/15/17 17:55 RDW 14.6 % (11.5-14.5) H 06/15/17 17:55 Plt Count 237 K/uL (130-400) 06/15/17 17:55 MPV 8.3 fl (7.2-11.7) 06/15/17 05:30 Neut % (Auto) 65.8 % (50.0-75.0) 06/15/17 05:30 Lymph % (Auto) 25.0 % (20.0-40.0) 06/15/17 05:30 [place] % (Auto) 7.0 % (0.0-10.0) 06/15/17 05:30 Eos % (Auto) 1.3 % (0.0-4.0) 06/15/17 05:30 Baso % (Auto) 0.9 % (0.0-2.0) 06/15/17 05:30 Neut # 7.7 K/uL (1.8-7.0) H 06/15/17 05:30 Lymph # 2.9 K/uL (1.0-4.3) 06/15/17 05:30 [place] # 0.8 K/uL (0.0-0.8) 06/15/17 05:30 Eos # 0.2 K/uL (0.0-0.7) 06/15/17 05:30 Baso # 0.1 K/uL (0.0-0.2) 06/15/17 05:30 PT 12.2 Seconds (9.8-13.1) 06/15/17 05:30 INR 1.1 (0.9-1.2) 06/15/17 05:30 APTT 41.4 Seconds (25.6-37.1) H 06/14/17 22:50 Sodium 141 mmol/l (132-148) 06/15/17 05:30 Potassium 3.6 MMOL/L (3.6-5.0) 06/15/17 05:30 Chloride 110 mmol/L (98-107) H 06/15/17 05:30 Carbon Dioxide 22 mmol/L (22-30) 06/15/17 05:30 Anion Gap 13 (10-20) 06/15/17 05:30 BUN 6 mg/dl (7-17) L 06/15/17 05:30 Creatinine 0.5 mg/dL (0.7-1.2) L 06/15/17 05:30 Est GFR ( Amer) > 60 06/15/17 05:30 Est GFR (Non-Af Amer) > 60 06/15/17 05:30 Random Glucose 113 mg/dL (65-105) H 06/15/17 05:30 Calcium 7.8 mg/dL (8.4-10.2) L 06/15/17 05:30 Iron 36 ug/dL (37-170) L 06/15/17 05:30 TIBC 390 ug/dL (250-450) 06/15/17 05:30 % Saturation 9 % (20-55) L 06/15/17 05:30 Ferritin 3.4 ng/Ml (6.24-137.0) L 06/15/17 05:30 Total Bilirubin 0.4 mg/dl (0.2-1.3) 06/15/17 05:30 AST 47 U/L (14-36) H D 06/15/17 05:30 ALT 48 U/L (9-52) 06/15/17 05:30 Alkaline Phosphatase 44 U/L (38-126) 06/15/17 05:30 Total Protein 6.3 G/DL (6.3-8.2) 06/15/17 05:30 Albumin 3.4 g/dL (3.5-5.0) L 06/15/17 05:30 Globulin 3.0 gm/dL (2.2-3.9) 06/15/17 05:30 Albumin/Globulin Ratio 1.1 (1.0-2.1) 06/15/17 05:30 TSH 3rd Generation 3.29 mIU/ML (0.46-4.68) 06/15/17 05:30 Blood Type O POSITIVE 06/14/17 22:41 Antibody Screen Negative 06/14/17 22:41 Crossmatch IS Only See Detail 06/14/17 22:41 BBK History Checked Patient has bt 06/14/17 22:41 - Hospital Course Hospital Course: 36 y/o with a PMHx of extensive uterine fibroids was admitted for symptomatic anemia secondary to acute blood loss from uterine bleeding. pt was tranfused 4 units of PRBCs, Hb improved from 4.5 to 10.1 After an uneventful hospital stay, pt was discharged in stable condition. Meds: Provera 10mg PO x 5days Ferrous Sulfate 325mg PO BID Colace 100mg PO BID with FeSO4 Discharge Exam - Head Exam Head Exam: ATRAUMATIC - Eye Exam Eye Exam: EOMI Pupil Exam: PERRL - ENT Exam ENT Exam: Mucous Membranes Moist - Respiratory Exam Respiratory Exam: Clear to PA & Lateral, NORMAL BREATHING PATTERN, UNREMARKABLE - Cardiovascular Exam Cardiovascular Exam: REGULAR RHYTHM - GI/Abdominal Exam GI & Abdominal Exam: Normal Bowel Sounds, Unremarkable - Extremities Exam Extremities exam: normal inspection - Neurological Exam Neurological exam: Alert, CN II-XII Intact, Oriented x3 - Psychiatric Exam Psychiatric exam: Normal Affect, Normal Mood - Skin Skin Exam: Dry, Intact, Normal Color, Warm Discharge Plan - Follow Up Plan Condition: STABLE Disposition: HOME/ ROUTINE Instructions: Iron Supplements (By mouth), Medroxyprogesterone (By mouth), Laxative, Stool Softeners (By mouth), Iron Rich Diet (DC), Anemia (DC) Additional Instructions: F/U appointment with Dr. Sigala scheduled for at 2:15 at [facility] Referrals: [facility] [Outside] Potter-Jacinta Mercado MD [Staff Provider] - Cooper Fletcher MD [Family Provider] -
--- NOTE | 2017-06-16 12:27 | US ---
HISTORY: fibroids COMPARISON: 12/20/2016 TECHNIQUE: Transvaginal only. Real -time technique with 2D, duplex and color Doppler FINDINGS: UTERUS: Measures 9.4 x 6 x 9.5 cm. Normal in size and appearance. Multiple (4) uterine fibroids summarized as follows: 1. Fundal fibroid 4 x 3.8 x 4.3 cm. 2. Submucosal fibroid 1.8 x 1.3 x 1.2 cm. 3. Posterior fibroid 1.8 x 1.4 x 1.7 cm. 4. Lower uterine segment midline 7 x 8 x 8 mm. ENDOMETRIUM: Measures 3.8 mm in diameter. No ultrasound findings to suggest gestational sac, fluid, debris, mass or polyp or other pathologic process within the endometrium. CERVIX: No cervical abnormality identified. RIGHT OVARY: Measures 1.9 x 2 x 2.3 cm. No solid mass. Normal flow. Multiple subcentimeter follicles. LEFT OVARY: Measures 1.9 x 3 x 2.9 cm. No solid mass. Normal flow. Multiple subcentimeter follicles. FREE FLUID: No significant free fluid noted. OTHER FINDINGS: None. IMPRESSION: Mildly enlarged heterogeneous uterus with multiple (4) uterine fibroids which are stable compared to the prior study. Several fibroids identified previously are not visualized with certainty on the current study. No significant interval change compared to the prior examination(s).
[2017-06-18 14:49] LABS: VON WILLERBRAND FACTOR AG 127 % (50-217)
[2017-06-18 15:06] VITALS: PULSE 93; O2SAT 100
== END 2017-06-16 14:19 | disposition home or self-care (01) | DRG 812 ==
LOC: H.ER 21:26 → H.ERHOLD 23:25 → H.ICU/CCU 06-15 01:24 → H.MEDSURG1 06-15 12:35
PROVIDERS: ADMIT Family Medicine; ATTEND Family Medicine
PROC: 30233N1 Transfusion of Nonautologous Red Blood Cells into Peripheral Vein, Percutaneous Approach (ICD-10-PCS; principal; 2017-06-15)
DX: D62 Acute posthemorrhagic anemia (principal); D25.0 Submucous leiomyoma of uterus; E78.5 Hyperlipidemia, unspecified; N92.0 Excessive and frequent menstruation with regular cycle

== ENCOUNTER 2017-08-30 03:51 | Inpatient (IN) | payer SELFPAY ==
[2017-08-30 03:52] VITALS: BMI 26.2
[2017-08-30] MEDS ORDERED: Sodium Chloride 0.9% 1,000 ML IV STA ×2 (04:34→05:48)
--- NOTE | 2017-08-30 04:52 | ED PDOC ---
Addendum entered and electronically signed by Jaqueline Stoll PA-C 08/30/17 05:59: Addendum Addendum: 08/30/17 05:58 ekg: NSR, ST/T wave nonspefic, no ST elevation Original Note: HPI: Female Pain Time Seen by Provider: 08/30/17 04:43 Chief Complaint (Nursing): Female Genitourinary Chief Complaint (Provider): vaginal bleeding. Associated Symptoms: denies: Fever, Chills, Nausea, Vomiting Additional Complaint(s): 37yo F in ED for eval of vaginal bleeding since yesterday with clots. pt has hx of uterine fibroids and has f.u appointment with MD Howard for further evaluation/IUD placement. pt with hx of anemia. pt currently taking methyprogesterone. pt admits to associated dizziness and nausea with heavy bleeding and pain. Past Medical History Reviewed: Historical Data, Nursing Documentation, Vital Signs Vital Signs: Last Vital Signs Temp 97.6 F 08/30/17 04:16 Pulse 92 H 08/30/17 04:16 Resp 18 08/30/17 04:16 BP 115/69 08/30/17 04:16 Pulse Ox 100 08/30/17 04:16 - Medical History PMH: Denies: Chronic Kidney Disease - Surgical History Surgical History: Cholecystectomy, (x 1) - Family History Family History: States: Unknown Family Hx - Home Medications Home Medications: Ambulatory Orders Medication Instructions Recorded Norethindrone-Ethinyl Estrad 1 tab PO DAILY 06/14/17 [Dasetta 1-35-28 Tablet] - Allergies Allergies/Adverse Reactions: Allergies Allergy/AdvReac Type Severity Reaction Status Date / Time No Known Allergies Allergy Verified 06/14/17 21:48 Review of Systems ROS Statement: Except As Marked, All Systems Reviewed And Found Negative Genitourinary Female: Positive for: Vaginal Bleeding Physical Exam - Reviewed Nursing Documentation Reviewed: Yes Vital Signs Reviewed: Yes - Physical Exam Appears: Positive for: Non-toxic, No Acute Distress, Uncomfortable Skin: Positive for: Warm, Pallor Cardiovascular/Chest: Positive for: Regular Rate, Rhythm Respiratory: Positive for: CNT, Normal Breath Sounds Gastrointestinal/Abdominal: Positive for: Normal Exam, Bowel Sounds, Soft, Tenderness Back: Positive for: Normal Inspection. Negative for: L CVA Tenderness, R CVA Tenderness Neurologic/Psych: Positive for: Alert, Oriented - Laboratory Results Result Diagrams: 08/30/17 04:40 08/30/17 04:40 - ECG O2 Sat by Pulse Oximetry: 100 - Progress ED Course And Treament: Orders Category Date Time Status TYPE AND SCREEN Stat BBK 08/30/17 04:34 Ordered COMP METABOLIC PANEL Stat Chem 08/30/17 04:34 Ordered CBC (WITH DIFFERENTIAL) Stat URMILA 08/30/17 04:34 Ordered PROTHROMBIN TIME [COAG] Stat URMILA 08/30/17 04:45 Ordered PTT [PARTIAL THROMBOPLASTIN TIME] [COAG] Stat URMILA 08/30/17 04:45 Ordered Acetaminophen [Tylenol 325mg tab] Med 08/30/17 04:53 Stat 650 mg PO STAT STA Ketorolac [Toradol] Med 08/30/17 04:52 Stat 30 mg IVP STAT STA Sodium Chloride 0.9% 1,000 ml Med 08/30/17 04:34 Active IV 1,000 mls/hr Magnetic Testing Technician ONCE NURSING 08/30/17 04:34 Active Medical Decision Making Medical Decision Making: pt with anemia at 5.2hgb pt will need admission for transfusion OB-hospitalist consulted will see pt pt will be admitted to family medicine pt agrees with admission and understands need. pt is less pale, no longer dizzy. Vital Signs - 24 hr 08/30/17 08/30/17 04:16 05:49 Temperature 97.6 F Pulse Rate 92 H Respiratory 18 Rate Blood Pressure 115/69 O2 Sat by Pulse 100 100 Oximetry Disposition - Clinical Impression Clinical Impression: Vaginal bleeding, Anemia - Patient ED Disposition Is Patient to be Admitted: Yes - Disposition Disposition Time: 05:52 Condition: FAIR Forms: Lono (Belarusian) - Pt Status Changed To: Hospital Disposition Of: Inpatient - Admit Certification Admit to Inpatient:: After my assessment, the patient will require hospitalization for at least two midnights. This is because of the severity of symptoms shown, intensity of services needed, and/or the medical risk in this patient being treated as an outpatient. - POA Present On Arrival: None
[2017-08-30 05:12] LABS: ALB/GLOB RATIO 1.2 (1.0-2.1); ALBUMIN 3.8 g/dL (3.5-5.0); ALT/SGPT 52 U/L (9-52); AST/SGOT 24 U/L (14-36); BLOOD UREA NITROGEN 11 mg/dl (7-17); CALCIUM 8.4 mg/dL (8.4-10.2); GFR AFRICAN-AMERICAN > 60; GFR NON-AFRICAN AMERICAN > 60
[2017-08-30 05:15] LABS: INR 1.2 (0.9-1.2); PARTIAL THROMBOPLASTIN TIME 22.8 Seconds (25.6-37.1); PROTHROMBIN TIME 12.9 Seconds (9.8-13.1)
[2017-08-30 05:28] LABS: BASO # 0.1 K/uL (0.0-0.2); BASO % 0.6 % (0.0-2.0); EOS % 0.2 % (0.0-4.0); LYMPH # 1.3 K/uL (1.0-4.3); LYMPH % 12.5 % (20.0-40.0); MEAN CELL VOLUME 81.9 fl (81.0-99.0); MEAN CORPUSCULAR HEMOGLOBIN 25.8 pg (27.0-31.0); MEAN CORPUSCULAR HGB CONC 31.5 g/dL (33.0-37.0); MEAN PLATELET VOLUME 8.4 fl (7.2-11.7); MONO # 0.6 K/uL (0.0-0.8); MONO % 5.9 % (0.0-10.0); NEUT # 8.4 K/uL (1.8-7.0); NEUT % 80.8 % (50.0-75.0); NRBC % 0.2 % (0.0-0.0); RED CELL DISTRIBUTION WIDTH 17.3 % (11.5-14.5); WHITE BLOOD COUNT 10.4 K/uL (4.8-10.8)
[2017-08-30 05:38] LABS: HEMOGLOBIN 5.2 g/dL (12.0-16.0)
--- NOTE | 2017-08-30 06:54 | CP.PCM.HP ---
History of Present Illness - History of Present Illness History of Present Illness: CC: vaginal bleeding HPI: 37 y/o woman w/ pmh of leiomyoma and irregular menses since 11/2016 presents to ED for severe vaginal bleeding. Patient reports bleeding started 3 days ago consistent with her period and was normal the next day. However, last night into this morning the bleeding was worse. Patient noted mostly clots. Patient reports associated lower abdominal pain, dizziness, weakness, and nausea. Patient took tylenol with no relief. Patient denies headache, chest pain, SOB, fever, vomiting, and dysuria. Patient is , x2 , x1 C- section, x1 SAB. Patient denies history of STDs. Last Pap smear was 2015 and was negative for intraepithelial lesion or malignancy. Patient was admitted on 06/14/2016 for similar complaints, went to ICU, received 4 units PRBCs. Patient just started her period, had one 07/2017 but none 06/2017. Duration of periods has been ranging for 7-9 days. Patient reports periods have become irregular since diagnosis of leiomyoma in 11/2016. [facility] has appointment w/ Dr. Sigala 09/02/2017 ED course: vitals: 99.1 f, 95 bpm, 129/70 mm Hg, resp 18, O2 99% RA CBC: 10.4>5.2/16.4<294 PTT: 22.8 PT: 12.9 INR: 1.2 CMP: 138/3.7, 107/23, 11/0.6, glucose 166, AST 24, ALT 52 type and screen: EKG: NSR, T wave inversion in anterolateral leads, no ST segment elevation/ depression, widened QRS or CO CXR: (preliminary) no active disease PRBC x2 IVF NS bolus x2 toradol 30 mg IV once tylenol 650 mg PO once [facility] allergies: NKDA Meds: OCP ortho-novum PO daily PMH: uterine fibroids PSH: x1 2006, cholecystectomy 04/2016 Fam: denies Hx of medical problems SOC: denies smoking, alcohol, and drugs ROS: 12 points assessed and negative unless otherwise reported in HPI Present on Admission - Present on Admission Any Indicators Present on Admission: No History of DVT/PE: No History of Uncontrolled Diabetes: No Urinary Catheter: No Decubitus Ulcer Present: No Review of Systems - Review of Systems All systems: reviewed and no additional remarkable complaints except - Constitutional Constitutional: Weakness. absent: Fever, Headache - EENT Eyes: absent: Change in Vision - Cardiovascular Cardiovascular: absent: Chest Pain, Leg Edema, Palpitations, Pedal Edema - Respiratory Respiratory: absent: Dyspnea, Wheezing - Gastrointestinal Gastrointestinal: Abdominal Pain, Nausea. absent: Diarrhea, Vomiting - Genitourinary Genitourinary: absent: Dysuria - Reproductive: Female Reproductive:Female: Amenorrhea, Menses Variable, Abnormal Vaginal Bleeding - Menstruation Menstruation: Currently Menstual, Menses >/= 8 Days, Abnormal Vaginal Bleeding - Integumentary Integumentary: absent: Rash - Neurological Neurological: Dizziness, Weakness. absent: Headaches Past Patient History - Past Medical History & Family History Past Medical History?: Yes - Past Social History Smoking Status: Never Smoked - CARDIAC Hx Cardiac Disorders: No - PULMONARY Hx Respiratory Disorders: No - NEUROLOGICAL Hx Neurological Disorder: No - HEENT Hx HEENT Problems: No - RENAL Hx Chronic Kidney Disease: No - ENDOCRINE/METABOLIC Hx Endocrine Disorders: No - HEMATOLOGICAL/ONCOLOGICAL Hx Blood Disorders: Yes Hx Anemia: Yes - INTEGUMENTARY Hx Dermatological Problems: No - MUSCULOSKELETAL/RHEUMATOLOGICAL Hx Musculoskeletal Disorders: No - GENITOURINARY/GYNECOLOGICAL Hx Genitourinary Disorders: Yes Other/Comment: fibroids - PSYCHIATRIC Hx Psychophysiologic Disorder: No Hx Substance Use: No - SURGICAL HISTORY Hx Cholecystectomy: Yes - ANESTHESIA Hx Anesthesia: Yes Hx Anesthesia Reactions: No Hx Malignant Hyperthermia: No Meds Allergies/Adverse Reactions: Allergies Allergy/AdvReac Type Severity Reaction Status Date / Time No Known Allergies Allergy Verified 06/14/17 21:48 Physical Exam - Constitutional Appears: No Acute Distress - Head Exam Head Exam: ATRAUMATIC, NORMAL INSPECTION, NORMOCEPHALIC - Eye Exam Eye Exam: Normal appearance - ENT Exam ENT Exam: Mucous Membranes Dry Additional comments: pale mucous membranes - Neck Exam Neck exam: Positive for: Full Rom, Normal Inspection. Negative for: Tenderness - Respiratory Exam Respiratory Exam: Clear to Auscultation Bilateral, NORMAL BREATHING PATTERN. absent: Accessory Muscle Use, Decreased Breath Sounds, Rales, Rhonchi, Wheezes, Respiratory Distress - Cardiovascular Exam Cardiovascular Exam: REGULAR RHYTHM, RRR Additional comments: capillary refill <2 seconds - GI/Abdominal Exam GI & Abdominal Exam: Normal Bowel Sounds, Soft, Tenderness (lower abdominal tenderness). absent: Distended - Back Exam Back exam: NORMAL INSPECTION. absent: CVA tenderness (L), CVA tenderness (R), paraspinal tenderness - Neurological Exam Neurological exam: Alert, Oriented x3 - Skin Skin Exam: Dry, Intact, Pallor Results - Vital Signs Recent Vital Signs: Last Vital Signs Temp 97.6 F 08/30/17 04:16 Pulse 95 H 08/30/17 05:53 Resp 18 08/30/17 05:53 BP 129/70 08/30/17 05:53 Pulse Ox 100 08/30/17 05:55 - Labs Result Diagrams: 08/30/17 04:40 08/30/17 04:40 Labs: Laboratory Results - last 24 hr 08/30/17 08/30/17 08/30/17 04:40 04:40 04:40 WBC 10.4 RBC 2.00 L Hgb 5.2 L* D Hct 16.4 L MCV 81.9 MCH 25.8 L MCHC 31.5 L RDW 17.3 H Plt Count 294 MPV 8.4 Neut % (Auto) 80.8 H Lymph % (Auto) 12.5 L [place] % (Auto) 5.9 Eos % (Auto) 0.2 Baso % (Auto) 0.6 Neut # 8.4 H Lymph # 1.3 [place] # 0.6 Eos # 0.0 Baso # 0.1 PT INR APTT Sodium 138 Potassium 3.7 Chloride 107 Carbon Dioxide 23 Anion Gap 12 BUN 11 Creatinine 0.6 L Est GFR ( Amer) > 60 Est GFR (Non-Af Amer) > 60 Random Glucose 166 H Calcium 8.4 Total Bilirubin 0.2 AST 24 ALT 52 Alkaline Phosphatase 49 Total Protein 7.0 Albumin 3.8 Globulin 3.2 Albumin/Globulin Ratio 1.2 Blood Type O POSITIVE Antibody Screen Negative Crossmatch See Detail BBK History Checked Patient has bt 08/30/17 04:40 WBC RBC Hgb Hct MCV MCH MCHC RDW Plt Count MPV Neut % (Auto) Lymph % (Auto) [place] % (Auto) Eos % (Auto) Baso % (Auto) Neut # Lymph # [place] # Eos # Baso # PT 12.9 INR 1.2 APTT 22.8 L Sodium Potassium Chloride Carbon Dioxide Anion Gap BUN Creatinine Est GFR ( Amer) Est GFR (Non-Af Amer) Random Glucose Calcium Total Bilirubin AST ALT Alkaline Phosphatase Total Protein Albumin Globulin Albumin/Globulin Ratio Blood Type Antibody Screen Crossmatch BBK History Checked Assessment & Plan - Assessment and Plan (Free Text) Assessment: 37 y/o woman w/ pmh of leiomyoma and irregular menses since 11/2016 presents to ED for severe vaginal bleeding. Most likely symptomatic aemia secondary to acute vaginal blood loss Plan: Symptomatic anemia - 2/2 acute blood loss - H/H: 5.2/16.4 was 7.9/24.5 in 07/2017 - 3 units PRBC ordered - vitals stable - admit to MedSurg - zofran 4 mg IVP Q6h for nausea prn - tylenol 650 mg PO Q6h for fever/pain prn - motrin 600 mg PO Q6h for pain prn - monitor vitals - regular diet - f/u iron studies - consider [employer] consultation Prophylactic measures - SCDs, no lovenox due to active vaginal bleeding - protonix 40 mg PO
--- NOTE | 2017-08-30 07:46 | CP.PCM.CON ---
Addendum entered and electronically signed by Brandt Cruz MD 08/30/17 08:57: Speculum and pelvic exam were performed with the following chaperones present throughout the exam: Mya Pugh and Irena Original Note: <Brandt Cruz - Last Filed: 08/30/17 07:54> History of Present Illness - History of Present Illness History of Present Illness: Pam Cheney is a pleasant 37 yo lady presented to the ED with 2 day history of abnormal uterine bleeding, malaise, dizziness and nausea. Her LMP was 08/27/2017, which she stated to be with normal bleeding, however, starting two days ago she shares of greater volume of blood per vagina with clots and symptomatic. She denies loss of consciousness. In november 2016 she experienced abnormal uterine bleeding. US: Submucosal fibroids : 1 anterior 10 mm; 1 posterior 12 mm; fundal 3.4x5.6x3.7 cm; Ant at body: 1.2x1.9cm; posterior lower uterine: 16mm. She had an IUD, which was removed on 05/08/2017. She was previously admitted in 06/14/2017 here for similar symptoms with hgb of 4.5. Admitted to ICU/family medicine and transfused 4 units of PRBC. Symptoms of malaise improved, vaginal bleeding resolved. She was then discharged with provera 10 mg qD x 5 days. She followed up with Dr. Sigala in clinic on 06/19/2017 and started on Ortho Novum 1mg/35mcg qD. She denies history of migraine with aura or history of DVT. PCP: Dr. Lockwood obhx: c/s x1 09/26 breech presentation; x2 full term 2004 M; 2010 F; gyne: denies history of STIs; pap: negative 2015 MedHx: leiomyoma, anemia Famhx: mom with ovarian cyst Surg: cholecystectomy 04/2016; c/s 2006; soc: denies: smoking, etoh, illicit drugs Rx: FeSO4, OrthoNovum NKDA PE: General: Dizziness, nausea have resolved; Weakness and lower abdominal pain present. Pallor: Perioral and digits of extremities; Capillary refill: <2sec Cardiac: S1S1 no murmurs Lungs: clear bilaterally, no wheezing Abdo: bilateral lower abdominal and pelvic tenderness to palpation; Pelvis: Speculum exam: pooling of blood in vaginal vault with clots. Bimanual: cervix closed, negative for CMT. Negative costo-vertbral tenderness; Negative for calf tenderness. Pam Cheney is a pleasant 37 yo lady presenting with menorrhagia 1) Anemia -HH: 5.2/16.4; symptomatic -Admit to med surg -type and screen O+ -transfusion of 2 units PRBC -Discussed options for medical management: continue with orthonorvum; consider IV estrogen [examine for breast nodules], depo provera; possible surgical management of: hysteromyomectomy; Pt shares of desire to have another child. 2) Uterine fibroids/leiomyomas -US: from 11/2015; stat transvaginal US to measure progression of fibroids Follow up with Dr. Sigala in clinic: scheduled for 09/02/2017; Signing off Gyne service; Please reconsult if needed. Case d/w Dr. Lobo Cruz MD PGY-1 Past Patient History - Past Medical History & Family History Past Medical History?: Yes - Past Social History Smoking Status: Never Smoked - CARDIAC Hx Cardiac Disorders: No - PULMONARY Hx Respiratory Disorders: No - NEUROLOGICAL Hx Neurological Disorder: No - HEENT Hx HEENT Problems: No - RENAL Hx Chronic Kidney Disease: No - ENDOCRINE/METABOLIC Hx Endocrine Disorders: No - HEMATOLOGICAL/ONCOLOGICAL Hx Blood Disorders: Yes Hx Anemia: Yes - INTEGUMENTARY Hx Dermatological Problems: No - MUSCULOSKELETAL/RHEUMATOLOGICAL Hx Musculoskeletal Disorders: No - GENITOURINARY/GYNECOLOGICAL Hx Genitourinary Disorders: Yes Other/Comment: fibroids - PSYCHIATRIC Hx Psychophysiologic Disorder: No Hx Substance Use: No - SURGICAL HISTORY Hx Cholecystectomy: Yes - ANESTHESIA Hx Anesthesia: Yes Hx Anesthesia Reactions: No Hx Malignant Hyperthermia: No Meds Allergies/Adverse Reactions: Allergies Allergy/AdvReac Type Severity Reaction Status Date / Time No Known Allergies Allergy Verified 06/14/17 21:48 - Medications Medications: Current Medications Acetaminophen (Tylenol 325mg Tab) 650 mg PO Q6 PRN PRN Reason: Pain, Mild (1-3) Acetaminophen (Tylenol 325mg Tab) 650 mg PO Q6 PRN PRN Reason: Fever >100.4 F Ibuprofen (Motrin Tab) 600 mg PO Q6H PRN PRN Reason: Pain, moderate (4-7) Ondansetron HCl (Zofran Inj) 4 mg IVP Q6 PRN PRN Reason: Nausea/Vomiting Results - Vital Signs Recent Vital Signs: Last Vital Signs Temp 99.1 F 08/30/17 06:30 Pulse 95 H 08/30/17 06:30 Resp 18 08/30/17 06:30 BP 129/70 08/30/17 06:30 Pulse Ox 99 08/30/17 06:30 - Labs Result Diagrams: 08/30/17 04:40 08/30/17 04:40 Labs: Laboratory Results - last 24 hr 08/30/17 08/30/17 08/30/17 04:40 04:40 04:40 WBC 10.4 RBC 2.00 L Hgb 5.2 L* D Hct 16.4 L MCV 81.9 MCH 25.8 L MCHC 31.5 L RDW 17.3 H Plt Count 294 MPV 8.4 Neut % (Auto) 80.8 H Lymph % (Auto) 12.5 L [place] % (Auto) 5.9 Eos % (Auto) 0.2 Baso % (Auto) 0.6 Neut # 8.4 H Lymph # 1.3 [place] # 0.6 Eos # 0.0 Baso # 0.1 PT INR APTT Sodium 138 Potassium 3.7 Chloride 107 Carbon Dioxide 23 Anion Gap 12 BUN 11 Creatinine 0.6 L Est GFR ( Amer) > 60 Est GFR (Non-Af Amer) > 60 Random Glucose 166 H Calcium 8.4 Total Bilirubin 0.2 AST 24 ALT 52 Alkaline Phosphatase 49 Total Protein 7.0 Albumin 3.8 Globulin 3.2 Albumin/Globulin Ratio 1.2 Blood Type O POSITIVE Antibody Screen Negative Crossmatch See Detail BBK History Checked Patient has bt 08/30/17 04:40 WBC RBC Hgb Hct MCV MCH MCHC RDW Plt Count MPV Neut % (Auto) Lymph % (Auto) [place] % (Auto) Eos % (Auto) Baso % (Auto) Neut # Lymph # [place] # Eos # Baso # PT 12.9 INR 1.2 APTT 22.8 L Sodium Potassium Chloride Carbon Dioxide Anion Gap BUN Creatinine Est GFR ( Amer) Est GFR (Non-Af Amer) Random Glucose Calcium Total Bilirubin AST ALT Alkaline Phosphatase Total Protein Albumin Globulin Albumin/Globulin Ratio Blood Type Antibody Screen Crossmatch BBK History Checked <Russell Diamond - Last Filed: 08/30/17 19:06> Meds - Medications Medications: Current Medications Acetaminophen (Tylenol 325mg Tab) 650 mg PO Q6 PRN PRN Reason: Pain, Mild (1-3) Acetaminophen (Tylenol 325mg Tab) 650 mg PO Q6 PRN PRN Reason: Fever >100.4 F Ibuprofen (Motrin Tab) 600 mg PO Q6H PRN PRN Reason: Pain, moderate (4-7) Medroxyprogesterone Acetate (Provera) 10 mg PO DAILY [facility] Last Admin: 08/30/17 12:05 Dose: 10 mg Ondansetron HCl (Zofran Inj) 4 mg IVP Q6 PRN PRN Reason: Nausea/Vomiting Results - Vital Signs Recent Vital Signs: Last Vital Signs Temp 98.6 F 08/30/17 17:00 Pulse 90 08/30/17 17:00 Resp 18 08/30/17 17:00 BP 105/70 08/30/17 17:00 Pulse Ox 98 08/30/17 17:00 - Labs Result Diagrams: 08/30/17 04:40 08/30/17 04:40 Labs: Laboratory Results - last 24 hr 08/30/17 08/30/17 08/30/17 04:40 04:40 04:40 WBC 10.4 RBC 2.00 L Hgb 5.2 L* D Hct 16.4 L MCV 81.9 MCH 25.8 L MCHC 31.5 L RDW 17.3 H Plt Count 294 MPV 8.4 Neut % (Auto) 80.8 H Lymph % (Auto) 12.5 L [place] % (Auto) 5.9 Eos % (Auto) 0.2 Baso % (Auto) 0.6 Neut # 8.4 H Lymph # 1.3 [place] # 0.6 Eos # 0.0 Baso # 0.1 PT INR APTT Sodium 138 Potassium 3.7 Chloride 107 Carbon Dioxide 23 Anion Gap 12 BUN 11 Creatinine 0.6 L Est GFR ( Amer) > 60 Est GFR (Non-Af Amer) > 60 Random Glucose 166 H Calcium 8.4 Ferritin Total Bilirubin 0.2 AST 24 ALT 52 Alkaline Phosphatase 49 Total Protein 7.0 Albumin 3.8 Globulin 3.2 Albumin/Globulin Ratio 1.2 Blood Type O POSITIVE Antibody Screen Negative Crossmatch See Detail BBK History Checked Patient has bt 08/30/17 08/30/17 04:40 07:16 WBC RBC Hgb Hct MCV MCH MCHC RDW Plt Count MPV Neut % (Auto) Lymph % (Auto) [place] % (Auto) Eos % (Auto) Baso % (Auto) Neut # Lymph # [place] # Eos # Baso # PT 12.9 INR 1.2 APTT 22.8 L Sodium Potassium Chloride Carbon Dioxide Anion Gap BUN Creatinine Est GFR ( Amer) Est GFR (Non-Af Amer) Random Glucose Calcium Ferritin 4.3 L Total Bilirubin AST ALT Alkaline Phosphatase Total Protein Albumin Globulin Albumin/Globulin Ratio Blood Type Antibody Screen Crossmatch BBK History Checked Assessment & Plan - Assessment and Plan (Free Text) Assessment: Menorrhagia/anemia/fibroid uterus Plan: With PGY1, Case was discussed and agree with transfusion...follow up with PMD after discharge - Date & Time Date: 08/30/17 Time: 19:00
--- NOTE | 2017-08-30 08:12 | RAD ---
HISTORY: medical ex COMPARISON: 06/14/2017 FINDINGS: LUNGS: No active pulmonary disease. PLEURA: No significant pleural effusion identified, no pneumothorax apparent. CARDIOVASCULAR: Heart is normal in size and unchanged. OSSEOUS STRUCTURES: No significant abnormalities. VISUALIZED UPPER ABDOMEN: Normal. OTHER FINDINGS: Surgical clips are seen in the right upper quadrant. Trachea is midline. IMPRESSION: No active disease.
--- NOTE | 2017-08-30 12:13 | CARD ---
APPROVED REPORT EKG Measurement Heart [id number] <Conclusion> Normal sinus rhythm Nonspecific ST and T wave abnormality Abnormal ECG
--- NOTE | 2017-08-30 12:25 | US ---
HISTORY: pelvic bleeding COMPARISON: None available. TECHNIQUE: Transabdominal and transvaginal ultrasound examination of the pelvis was performed. FINDINGS: UTERUS: Measures 10.6 x 6.3 x 7.5. Cm. Uterus is mildly enlarged. scar is noted. Visualized cervix is unremarkable. There is evidence of a 6.3 x 6.3 x 5.5 right-sided uterine fundal fibroid. This is displacing the endometrial complex to the left. There is mild heterogeneity of the overall myometrial echotexture suggestive of myomatous changes. ENDOMETRIUM: Measures 8 mm in diameter. No appreciable endometrial complex mass is noted. No appreciable residual retained IUD is noted with a history of IUD removal in April 2017. No fluid is seen in the endometrial canal. CERVIX: No cervical abnormality identified. RIGHT OVARY: Measures 2.4 x 1.9 x 1.8 cm. So only seen transabdominally and is otherwise normal in size and echogenicity. Normal flow. LEFT OVARY: Measures 4.6 x 3.2 by 3.2 cm. There is a 4 x 4 by 2.6 centimeter hypoechoic simple left ovarian cyst without mural nodule or wall thickening. This occupies a large portion of the left ovary. Normal flow. FREE FLUID: No significant free fluid noted. OTHER FINDINGS: None. IMPRESSION: Mildly enlarged fibroid uterus with dominant right-sided uterine fibroid appreciated. No endometrial complex mass. Simple left ovarian cyst. Follow-up ultrasound in 6 weeks to assess for resolution is suggested.
[2017-08-31 08:19] LABS: MEAN CELL VOLUME 85.5 fl (81.0-99.0); MEAN CORPUSCULAR HEMOGLOBIN 28.2 pg (27.0-31.0); MEAN CORPUSCULAR HGB CONC 32.9 g/dL (33.0-37.0); RBC 1.96 Mil/uL (3.80-5.20); RED CELL DISTRIBUTION WIDTH 17.1 % (11.5-14.5); WHITE BLOOD COUNT 10.7 K/uL (4.8-10.8)
[2017-08-31 08:39] LABS: HEMOGLOBIN 5.5 g/dL (12.0-16.0)
--- NOTE | 2017-08-31 09:12 | CP.PCM.PN ---
Subjective - Date & Time of Evaluation Date of Evaluation: 08/31/17 Time of Evaluation: 09:10 - Subjective Subjective: No acute overnight events. Pt received 2 units of PRBC thus far. She states that she feels better this AM. Pt states that she is still bleeding, but its better then yesterday. Endorses soreness in the suprabuic area, headache, and fatigue but states that its better then last night. Denies chest pain, dyspnea, dizziness, n/v/d/c and remains afebrile. Objective - Vital Signs/Intake and Output Vital Signs (last 24 hours): Temp Pulse Resp BP Pulse Ox 98.8 F 84 20 114/68 98 08/31/17 07:53 08/31/17 07:53 08/31/17 07:53 08/31/17 07:53 08/31/17 07:53 - Medications Medications: Current Medications Acetaminophen (Tylenol 325mg Tab) 650 mg PO Q6 PRN PRN Reason: Pain, Mild (1-3) Last Admin: 08/31/17 09:00 Dose: 650 mg Acetaminophen (Tylenol 325mg Tab) 650 mg PO Q6 PRN PRN Reason: Fever >100.4 F Ibuprofen (Motrin Tab) 600 mg PO Q6H PRN PRN Reason: Pain, moderate (4-7) Medroxyprogesterone Acetate (Provera) 10 mg PO DAILY [facility] Last Admin: 08/31/17 09:00 Dose: 10 mg Ondansetron HCl (Zofran Inj) 4 mg IVP Q6 PRN PRN Reason: Nausea/Vomiting - Labs Labs: 08/31/17 07:20 08/30/17 04:40 PT 12.9 Seconds (9.8-13.1) 08/30/17 04:40 INR 1.2 (0.9-1.2) 08/30/17 04:40 APTT 22.8 Seconds (25.6-37.1) L 08/30/17 04:40 - Constitutional Appears: No Acute Distress, Other (looks pale) - Head Exam Head Exam: ATRAUMATIC, NORMAL INSPECTION - Eye Exam Eye Exam: EOMI, Normal appearance - ENT Exam ENT Exam: Mucous Membranes Moist - Neck Exam Neck Exam: Full ROM - Respiratory Exam Respiratory Exam: Clear to Ausculation Bilateral, NORMAL BREATHING PATTERN. absent: Rales, Wheezes - Cardiovascular Exam Cardiovascular Exam: REGULAR RHYTHM, +S1, +S2 - GI/Abdominal Exam GI & Abdominal Exam: Soft, Tenderness (mild tenderness of the suprapubic area), Normal Bowel Sounds - Extremities Exam Extremities Exam: Full ROM, Normal Inspection. absent: Tenderness - Back Exam Back Exam: NORMAL INSPECTION - Neurological Exam Neurological Exam: Alert, Awake, Oriented x3 - Psychiatric Exam Psychiatric exam: Normal Affect, Normal Mood - Skin Skin Exam: Dry, Intact, Normal Color, Pallor, Warm Assessment and Plan - Assessment and Plan (Free Text) Assessment: Assessment/Plan: 37 YO Female with PMH of leiomyoma and irregular menses is admitted for symptomatic anemia. 1) Symptomatic Iron Deficiency Anemia, acute -hb/hct 5.5/16.8 today from 5.2/16.4 -acute blood loss, VS stable -endorsing fatigue, and headache -Iron deficiency anemia, 2/2 to leiomyoma. Iron 11/Ferritin 4.3. -stat IV venofer, and colace -s/p 2 units of PRBC -2 units of PRBC ordered -will check cbc post transfusion -OBGYN consult appreciated, continue with orthonorvum; consider IV estrogen, depo provera. Follow up Dr. Sigala in clinic 2) Suprapubic pain -mild -likely 2/2 to fibroids -continue tylenol for pain 3) Leiomyoma -anemia likely 2/2 to acute bleeding due to leiomyoma -transvaginal u/s (08/2017)- mildly enlarged fibroid uterus with dominant right sided uterine fibroid measuring 6.6x6.3x5.5cm. -transvaginal u/s (05/2017) - 4 uterine fibroids largest measuring 4x3.8x4.3c, in the fundus. -pt considering surgery vs. medical management -[facility] up [facility] 4) Ovarian Cyst, Left -Transvaginal u/s (08/2017)- Simple left ovarian cyst measuring 4x4x2.6 cm. Normal flow. Follow up u/s in 6 weeks to assess for resolution. -follow up out-patient 5) Prophylaxis -SCDs, acute bleeding -
[2017-08-31 11:10] LABS: IRON 11 ug/dL (37-170)
[2017-08-31 11:19] LABS: TOTAL IRON BINDING CAPACITY 392 ug/dL (250-450)
[2017-08-31 11:29] LABS: % IRON SATURATION 3 % (20-55)
[2017-08-31 21:32] LABS: MEAN CORPUSCULAR HEMOGLOBIN 28.3 pg (27.0-31.0); MEAN CORPUSCULAR HGB CONC 33.2 g/dL (33.0-37.0); RBC 3.01 Mil/uL (3.80-5.20); RED CELL DISTRIBUTION WIDTH 15.1 % (11.5-14.5); WHITE BLOOD COUNT 15.3 K/uL (4.8-10.8)
[2017-08-31 21:39] LABS: HEMOGLOBIN 8.5 g/dL (12.0-16.0)
[2017-09-01 06:24] LABS: HEMOGLOBIN 8.3 g/dL (12.0-16.0); MEAN CELL VOLUME 84.7 fl (81.0-99.0); MEAN CORPUSCULAR HEMOGLOBIN 28.7 pg (27.0-31.0); MEAN CORPUSCULAR HGB CONC 33.9 g/dL (33.0-37.0); RBC 2.9 Mil/uL (3.80-5.20); RED CELL DISTRIBUTION WIDTH 15.6 % (11.5-14.5); WHITE BLOOD COUNT 14.1 K/uL (4.8-10.8)
[2017-09-01 07:46] VITALS: O2SAT 100
[2017-09-01] MEDS ORDERED: Magnesium Hydroxide Susp 30 ml UD PO ONE (08:13)
--- NOTE | 2017-09-01 10:24 | CP.PCM.PN ---
Subjective - Date & Time of Evaluation Date of Evaluation: 09/01/17 Time of Evaluation: 10:22 - Subjective Subjective: Pt received 2 more units of PRBC yesterday along with IV Iron. Pt tolerated both well. Feeling well this AM. Endorses abdominal pain and constipation. Per pt, bleeding has improved, used 2 pads since yesterday. Denies headache, dizziness, n/v/d/c and remains afebrile. Objective - Vital Signs/Intake and Output Vital Signs (last 24 hours): Temp Pulse Resp BP Pulse Ox 98.2 F 75 20 112/71 100 09/01/17 07:46 09/01/17 07:46 09/01/17 07:46 09/01/17 07:46 09/01/17 07:46 - Medications Medications: Current Medications Acetaminophen (Tylenol 325mg Tab) 650 mg PO Q6 PRN PRN Reason: Pain, Mild (1-3) Last Admin: 08/31/17 09:00 Dose: 650 mg Acetaminophen (Tylenol 325mg Tab) 650 mg PO Q6 PRN PRN Reason: Fever >100.4 F Docusate Sodium (Colace) 100 mg PO DAILY [facility] Iron Sucrose 200 mg/ Sodium (Chloride) 110 mls @ 110 mls/hr IVPB DAILY [facility] Stop: 09/02/17 23:59 Last Admin: 08/31/17 18:40 Dose: 110 mls/hr Ibuprofen (Motrin Tab) 600 mg PO Q6H PRN PRN Reason: Pain, moderate (4-7) Medroxyprogesterone Acetate (Provera) 10 mg PO DAILY [facility] Last Admin: 08/31/17 09:00 Dose: 10 mg Ondansetron HCl (Zofran Inj) 4 mg IVP Q6 PRN PRN Reason: Nausea/Vomiting - Labs Labs: 09/01/17 05:45 08/30/17 04:40 PT 12.9 Seconds (9.8-13.1) 08/30/17 04:40 INR 1.2 (0.9-1.2) 08/30/17 04:40 APTT 22.8 Seconds (25.6-37.1) L 08/30/17 04:40 Assessment and Plan - Assessment and Plan (Free Text) Assessment: 37 YO Female with PMH of leiomyoma and irregular menses is admitted for symptomatic anemia. 1) Symptomatic Iron Deficiency Anemia, acute -hb/hct 5.5/16.8 today from 5.2/16.4 -acute blood loss, VS stable -endorsing fatigue, and headache -Iron deficiency anemia, 2/2 to leiomyoma. Iron 11/Ferritin 4.3. -stat IV venofer, and colace -s/p 2 units of PRBC -2 units of PRBC ordered -will check cbc post transfusion -OBGYN consult appreciated, continue with orthonorvum; consider IV estrogen, depo provera. Follow up Dr. Sigala in clinic 2) Suprapubic pain -mild -likely 2/2 to fibroids -continue tylenol for pain 3) Leiomyoma -anemia likely 2/2 to acute bleeding due to leiomyoma -transvaginal u/s (08/2017)- mildly enlarged fibroid uterus with dominant right sided uterine fibroid measuring 6.6x6.3x5.5cm. -transvaginal u/s (05/2017) - 4 uterine fibroids largest measuring 4x3.8x4.3c, in the fundus. -pt considering surgery vs. medical management -follow up with [facility] 4) Ovarian Cyst, Left -Transvaginal u/s (08/2017)- Simple left ovarian cyst measuring 4x4x2.6 cm. Normal flow. Follow up u/s in 6 weeks to assess for resolution. -follow up out-patient 5) Prophylaxis -SCDs, acute bleeding
--- NOTE | 2017-09-01 10:31 | CP.PCM.DIS ---
Provider - Provider Date of Admission: 08/31/17 12:16 Attending physician: Lady Bryson MD Time Spent in preparation of Discharge (in minutes): 30 Hospital Course - Lab Results Lab Results: Most Recent Lab Values WBC 14.1 K/uL (4.8-10.8) H 09/01/17 05:45 RBC 2.90 Mil/uL (3.80-5.20) L 09/01/17 05:45 Hgb 8.3 g/dL (12.0-16.0) L 09/01/17 05:45 Hct 24.6 % (34.0-47.0) L 09/01/17 05:45 MCV 84.7 fl (81.0-99.0) 09/01/17 05:45 MCH 28.7 pg (27.0-31.0) 09/01/17 05:45 MCHC 33.9 g/dL (33.0-37.0) 09/01/17 05:45 RDW 15.6 % (11.5-14.5) H 09/01/17 05:45 Plt Count 188 K/uL (130-400) 09/01/17 05:45 MPV 8.4 fl (7.2-11.7) 08/30/17 04:40 Neut % (Auto) 80.8 % (50.0-75.0) H 08/30/17 04:40 Lymph % (Auto) 12.5 % (20.0-40.0) L 08/30/17 04:40 [place] % (Auto) 5.9 % (0.0-10.0) 08/30/17 04:40 Eos % (Auto) 0.2 % (0.0-4.0) 08/30/17 04:40 Baso % (Auto) 0.6 % (0.0-2.0) 08/30/17 04:40 Neut # 8.4 K/uL (1.8-7.0) H 08/30/17 04:40 Lymph # 1.3 K/uL (1.0-4.3) 08/30/17 04:40 [place] # 0.6 K/uL (0.0-0.8) 08/30/17 04:40 Eos # 0.0 K/uL (0.0-0.7) 08/30/17 04:40 Baso # 0.1 K/uL (0.0-0.2) 08/30/17 04:40 PT 12.9 Seconds (9.8-13.1) 08/30/17 04:40 INR 1.2 (0.9-1.2) 08/30/17 04:40 APTT 22.8 Seconds (25.6-37.1) L 08/30/17 04:40 Sodium 138 mmol/l (132-148) 08/30/17 04:40 Potassium 3.7 MMOL/L (3.6-5.0) 08/30/17 04:40 Chloride 107 mmol/L (98-107) 08/30/17 04:40 Carbon Dioxide 23 mmol/L (22-30) 08/30/17 04:40 Anion Gap 12 (10-20) 08/30/17 04:40 BUN 11 mg/dl (7-17) 08/30/17 04:40 Creatinine 0.6 mg/dl (0.7-1.2) L 08/30/17 04:40 Est GFR ( Amer) > 60 08/30/17 04:40 Est GFR (Non-Af Amer) > 60 08/30/17 04:40 Random Glucose 166 mg/dL (65-105) H 08/30/17 04:40 Calcium 8.4 mg/dL (8.4-10.2) 08/30/17 04:40 Iron 11 ug/dL (37-170) L 08/30/17 10:50 TIBC 392 ug/dL (250-450) 08/30/17 10:50 % Saturation 3 % (20-55) L 08/30/17 10:50 Ferritin 4.3 ng/Ml (6.24-137.0) L 08/30/17 07:16 Total Bilirubin 0.2 mg/dl (0.2-1.3) 08/30/17 04:40 AST 24 U/L (14-36) 08/30/17 04:40 ALT 52 U/L (9-52) 08/30/17 04:40 Alkaline Phosphatase 49 U/L (38-126) 08/30/17 04:40 Total Protein 7.0 G/DL (6.3-8.2) 08/30/17 04:40 Albumin 3.8 g/dL (3.5-5.0) 08/30/17 04:40 Globulin 3.2 gm/dL (2.2-3.9) 08/30/17 04:40 Albumin/Globulin Ratio 1.2 (1.0-2.1) 08/30/17 04:40 Blood Type O POSITIVE 08/30/17 04:40 Antibody Screen Negative 08/30/17 04:40 Crossmatch See Detail 08/30/17 04:40 BBK History Checked Patient has bt 08/30/17 04:40 - Hospital Course Hospital Course: 37 YO Female with PMH of leiomyomas and AUB was admitted for symptomatic anemia with hb/hct of 5.2/16.4 on admission. S/p 4 units of PRBC, given 2 units of IV venofer, repeat hb/hct today was 8.3/34.6, pt hemodynamically stable. On transvaginal u/s, new ovarian cyst measuring 4x4x2.6 cm, follow up in 6 weeks recommended. Will d/c pt home with medroxyprogesterone PO, continue OCP, colace , Venofer IV (3 more days), ferrous sulfate and given rx for cbc for leukocytosis and anemia. Follow up apt with Dr. Sigala on 09/02/17 @ 3PM and [facility] @ 9:20. Discharge Exam - Head Exam Head Exam: ATRAUMATIC, NORMAL INSPECTION Additional comments: Mild pallor, improved. - Eye Exam Eye Exam: EOMI, Normal appearance - ENT Exam ENT Exam: Mucous Membranes Moist - Neck Exam Neck exam: Full Rom - Respiratory Exam Respiratory Exam: Clear to PA & Lateral, NORMAL BREATHING PATTERN. absent: Wheezes - Cardiovascular Exam Cardiovascular Exam: REGULAR RHYTHM, +S1, +S2 - GI/Abdominal Exam GI & Abdominal Exam: Normal Bowel Sounds, Soft - Extremities Exam Extremities exam: full ROM, normal inspection - Back Exam Back exam: NORMAL INSPECTION - Neurological Exam Neurological exam: Alert, Normal Gait, Oriented x3 - Psychiatric Exam Psychiatric exam: Normal Affect, Normal Mood - Skin Skin Exam: Dry, Normal Color, Pallor (mild, imporved from previouly ), Warm Discharge Plan - Discharge Medications Prescriptions: Docusate Sodium [Colace] 100 mg PO DAILY #30 capsule Ferrous Sulfate 325 mg PO TID #90 tablet MedroxyPROGESTERone [Provera] 10 mg PO DAILY #14 tab - Follow Up Plan Condition: FAIR Disposition: HOME/ ROUTINE Patient education suggested?: Yes Instructions: Dysfunctional Uterine Bleeding (DC), Uterine Fibroids (DC), Iron Rich Diet (DC), Anemia (DC) Additional Instructions: Follow up apt with Dr. Sigala on 09/02/17 @ 3PM Follow up in [facility] on 09/03/17 @9:20 Given Rx for follow up cbc for anemia and leukocytosis [facility] [[facility]] Jacinta Cano MD [Staff Provider] -
[2017-09-01 15:22] VITALS: BP 117/81; PULSE 90; RESP 18; TEMP 98.7
== END 2017-09-01 16:00 | disposition home or self-care (01) | DRG 395 ==
LOC: H.ER 03:51 → H.ERHOLD 06:03 → H.MEDSURG1 07:11 → OBSVTOIN 08-31 12:16 → H.MEDSURG1 09-01 11:56
PROVIDERS: ADMIT Family Medicine Geriatric Medicine; ATTEND Family Medicine Geriatric Medicine
PROC: 30233N1 Transfusion of Nonautologous Red Blood Cells into Peripheral Vein, Percutaneous Approach (ICD-10-PCS; principal; 2017-08-30)
DX: D62 Acute posthemorrhagic anemia (principal); D25.0 Submucous leiomyoma of uterus; N92.0 Excessive and frequent menstruation with regular cycle; N83.292 Other ovarian cyst, left side

== ENCOUNTER 2017-12-11 17:28 | Emergency (ER) | payer SELFPAY ==
[2017-12-11 17:28] VITALS: BMI 24.6
[2017-12-11 17:40] VITALS: RESP 16; O2SAT 100
[2017-12-11] MEDS ORDERED: Sodium Chloride 0.9% 1,000 ML IV STA (17:58)
--- NOTE | 2017-12-11 18:03 | ED PDOC ---
HPI: Abdomen Time Seen by Provider: 12/11/17 18:00 Chief Complaint (Nursing): Abdominal Pain Chief Complaint (Provider): VAGINAL BLEEDING History Per: Patient (37 Y/O FEMALE H/O FIBROIDS HERE FOR PERSISTENT VAGINAL BLEEDING X 1 MONTH WITH HEAVY BLEEDING AND CLOTS TODAY. PATIENT HAS HAD RECENT IUD PLACED AND PLACED ONE ESTRADIOL 12/04 WITH NO IMPROVEMENT. WAS GIVEN REFERRAL TO [facility] OR [facility] FOR UTERINE EMBOLIZATION TODAY BUT UNABLE TO COMPLETE (UNSURE WHICH LOCATION TO GO). nOTES PAIN IN RIGHT SHOULDER WELL. HAS HAD TRANSFUSION 08/2017 ) Past Medical History Reviewed: Historical Data, Nursing Documentation, Vital Signs Vital Signs: Last Vital Signs Temp 98 F 12/11/17 17:36 Pulse 84 12/11/17 17:36 Resp 16 12/11/17 17:36 BP 120/67 12/11/17 17:36 Pulse Ox 100 12/11/17 19:48 - Medical History PMH: Anemia, Anxiety Denies: HIV, Chronic Kidney Disease - Surgical History Surgical History: Cholecystectomy, (x 1) - Family History Family History: States: Unknown Family Hx - Home Medications Home Medications: Ambulatory Orders Medication Instructions Recorded Docusate Sodium [Colace] 100 mg PO DAILY #30 capsule 09/01/17 Iron Sucrose Complex [Venofer] 200 mg IV DAILY #3 ml 09/01/17 Ferrous Sulfate 325 mg PO DAILY 09/05/17 MedroxyPROGESTERone [Provera] 10 mg PO TID 09/05/17 Ciprofloxacin HCl [Cipro] 500 mg PO BID #10 tablet 12/11/17 - Allergies Allergies/Adverse Reactions: Allergies Allergy/AdvReac Type Severity Reaction Status Date / Time No Known Allergies Allergy Verified 06/14/17 21:48 Review of Systems ROS Statement: Except As Marked, All Systems Reviewed And Found Negative Physical Exam - Reviewed Nursing Documentation Reviewed: Yes Vital Signs Reviewed: Yes - Physical Exam Appears: Positive for: Well, Non-toxic, No Acute Distress Head Exam: Positive for: ATRAUMATIC, NORMAL INSPECTION, NORMOCEPHALIC Skin: Positive for: Normal Color, Warm, DRY Eye Exam: Positive for: EOMI, Normal appearance, PERRL ENT: Positive for: Normal ENT Inspection Neck: Positive for: Normal, Painless ROM Cardiovascular/Chest: Positive for: Regular Rate, Rhythm Respiratory: Positive for: CNT, Normal Breath Sounds Gastrointestinal/Abdominal: Positive for: Normal Exam, Soft Pelvic Exam: Positive for: Active Bleeding (MILD BLEEDING;MINIMAL CLOTS NOTED.) Back: Positive for: Normal Inspection Extremity: Positive for: Normal ROM Neurologic/Psych: Positive for: Alert, Oriented - Laboratory Results Result Diagrams: 12/11/17 18:20 12/11/17 18:20 - ECG O2 Sat by Pulse Oximetry: 100 Disposition - Clinical Impression Clinical Impression: Fibroids, UTI (urinary tract infection) - Patient ED Disposition Is Patient to be Admitted: Transfer of Care - Disposition Disposition: Transfer of Care Disposition Time: 20:00 Condition: FAIR Additional Instructions: PLEASE FOLLOW UP WITH IR CALL TOMORROW [phone] ( OR [phone] EXT [phone] FOR INTERVENTIONAL RADIOLOGY) Prescriptions: Ciprofloxacin HCl [Cipro] 500 mg PO BID #10 tablet Instructions: Urinary Tract Infections in Adults, Uterine Fibroids Forms: [employer] (Nigerian) Patient Signed Over To: Yusra Santo Handoff Comments: ULTRASOUND PELVIC PENDING. AND RE-EVAL
[2017-12-11 18:31] LABS: BASO # 0.1 K/uL (0.0-0.2); BASO % 0.6 % (0.0-2.0); EOS # 0.2 K/uL (0.0-0.7); EOS % 1.8 % (0.0-4.0); HEMOGLOBIN 10.8 g/dL (12.0-16.0); LYMPH # 1.3 K/uL (1.0-4.3); LYMPH % 12.3 % (20.0-40.0); MEAN CELL VOLUME 90.6 fl (81.0-99.0); MEAN CORPUSCULAR HGB CONC 34.3 g/dL (33.0-37.0); MEAN PLATELET VOLUME 8.3 fl (7.2-11.7); MONO # 0.6 K/uL (0.0-0.8); MONO % 6.3 % (0.0-10.0); NEUT # 8.1 K/uL (1.8-7.0); RBC 3.49 Mil/uL (3.80-5.20); RED CELL DISTRIBUTION WIDTH 14.1 % (11.5-14.5); WHITE BLOOD COUNT 10.3 K/uL (4.8-10.8)
[2017-12-11 18:43] LABS: BLOOD UREA NITROGEN 10 mg/dl (7-17); GFR AFRICAN-AMERICAN > 60; GFR NON-AFRICAN AMERICAN > 60
[2017-12-11 18:54] LABS: INR 1.1 (0.9-1.2); PARTIAL THROMBOPLASTIN TIME 28.8 Seconds (25.6-37.1); PROTHROMBIN TIME 11.9 Seconds (9.8-13.1)
--- NOTE | 2017-12-11 20:11 | ED PDOC ---
- Laboratory Results Result Diagrams: 12/11/17 18:20 12/11/17 18:20 - ECG O2 Sat by Pulse Oximetry: 100 Pulse Ox Interpretation: Normal - Other Rad TV US X-Ray: Read By Radiologist X-Ray Interpretation: see below Medical Decision Making Medical Decision Making: Case was signed out to customs entry writer from [place] pending transvaginal US. 8:30 pm: Patient was offered pain medication but she declined, stating she does not have any pain at this time. Transvaginal US: FINDINGS: Uterus/cervix: The cervix is long and closed. The uterus is heterogeneously enlarged measuring 10.2 cm x 6.2 cm x 7.7 cm. The uterus is anteverted in position. Heterogeneous circumscribed mass within the uterine fundus which exerts mild mass effect on the adjacent endometrium measures 4.9 cm x 4.8 cm x 5.1 cm, and it likely represents a fibroid. Two additional masses are identical imaging characteristics are present within the posterior right uterine body myometrium measuring 1.9 cm x 2.2 cm x 2.4 cm and left posterior uterine body myometrium measuring 2.6 cm x 1.8 cm x 2.0 cm. Defect within the lower segment likely represents a sequela of prior section. The imaged portions of the endometrium appear homogeneous measuring 0.9 cm in thickness. Right ovary: The right ovary is normal in size and echotexture measuring 2.0 cm x 1.4 cm x 1.7 cm. Normal color Doppler flow and normal spectral Doppler waveform are demonstrated within this ovary. Normal blood flow. Left ovary: The left ovary is normal in size and echotexture measuring 2.4 cm x 1.2 cm x 2.3 cm. normal color Doppler flow and spectral Doppler waveforms are demonstrated within this ovary. Normal blood flow. Free fluid: No free fluid. IMPRESSION: 1. Heterogeneously enlarged, fibroid, uterus with intramural fibroids as described above. The largest fibroid within the fundus measures up to 5.1 cm and appears to exert mild mass effect on the adjacent endometrium. 2. Normal appearance of the ovaries. No torsion. Patient is aware of above findings. Will d/c with rx naprosyn for pain. Patient was instructed to follow up with IR and[facility]or [facility]. Disposition - Clinical Impression Clinical Impression: Fibroids, UTI (urinary tract infection) - POA Present On Arrival: None - Disposition [facility]errals[facility] [[facility]] Disposition: Routine/Home Disposition Time: 21:04 Condition: STABLE Additional Instructions: PLEASE FOLLOW UP WITH IR CALL TOMORROW [phone] ( OR [phone] EXT [phone] FOR INTERVENTIONAL RADIOLOGY) Prescriptions: Ciprofloxacin HCl [Cipro] 500 mg PO BID #10 tablet Instructions: Urinary Tract Infections in Adults, Uterine Fibroids Forms: [employer] (Singaporean) Print Language: MALTESE Results - Lab Results Lab Results: 12/11/17 12/11/17 12/11/17 18:49 18:20 18:20 WBC 10.3 RBC 3.49 L Hgb 10.8 L D Hct 31.6 L MCV 90.6 MCH 31.0 MCHC 34.3 RDW 14.1 Plt Count 273 MPV 8.3 Neut % (Auto) 79.0 H Lymph % (Auto) 12.3 L [place] % (Auto) 6.3 Eos % (Auto) 1.8 Baso % (Auto) 0.6 Neut # (Auto) 8.1 H Lymph # (Auto) 1.3 [place] # (Auto) 0.6 Eos # (Auto) 0.2 Baso # (Auto) 0.1 PT 11.9 INR 1.1 APTT 28.8 Sodium Potassium Chloride Carbon Dioxide Anion Gap BUN Creatinine Est GFR ( Amer) Est GFR (Non-Af Amer) Random Glucose Calcium Blood Type O POSITIVE Antibody Screen Negative BBK History Checked Patient has bt 12/11/17 18:20 WBC RBC Hgb Hct MCV MCH MCHC RDW Plt Count MPV Neut % (Auto) Lymph % (Auto) [place] % (Auto) Eos % (Auto) Baso % (Auto) Neut # (Auto) Lymph # (Auto) [place] # (Auto) Eos # (Auto) Baso # (Auto) PT INR APTT Sodium 141 Potassium 3.9 Chloride 103 Carbon Dioxide 21 L Anion Gap 21 H BUN 10 Creatinine 0.4 L Est GFR ( Amer) > 60 Est GFR (Non-Af Amer) > 60 Random Glucose 126 H Calcium 9.0 Blood Type Antibody Screen BBK History Checked
[2017-12-11 21:20] VITALS: BP 128/82; PULSE 75; TEMP 98
--- NOTE | 2017-12-12 08:54 | US ---
HISTORY: EVALUATION OF FIBROIDS COMPARISON: Pelvic ultrasound dated 10/23/2017. TECHNIQUE: Grayscale, color Doppler and spectral evaluation the pelvis performed transvaginally FINDINGS: UTERUS: Measures 10.2 x 6.2 x 7.7 cm. Normal in size and appearance. Multiple uterine fibroids are redemonstrated. In the midline uterine fundus, posterior to the endometrium, there is a stable 4.9 x 4.8 x 5.1 cm fibroid. In the right fundus, posteriorly, there is a stable 1.9 x 2.2 x 2.4 cm fibroid. In the left posterior uterine fundus, there is a stable 2.6 x 1.8 x 2.0 cm fibroid. ENDOMETRIUM: Measures 9 mm in diameter. Unremarkable. CERVIX: No cervical abnormality identified. RIGHT OVARY: Measures 2.0 x 1.4 x 1.7 cm. No solid mass. Normal flow. LEFT OVARY: Measures 2.4 x 1.2 x 2.2 cm. Resolution of left ovarian cyst/follicle. Normal flow. FREE FLUID: No significant free fluid noted. OTHER FINDINGS: None. IMPRESSION: Stable leiomyomas.
== END 2017-12-11 21:20 | disposition home or self-care (01) ==
LOC: H.ER 17:28
DX: N39.0 Urinary tract infection, site not specified (principal); D25.1 Intramural leiomyoma of uterus; F41.9 Anxiety disorder, unspecified
CPT/HCPCS: 76830; 80048; 81025; 85025; 85610; 85730; 86850; 86900; 99283; J7040

== ENCOUNTER 2018-01-06 08:35 | Day surgery (SDC) | payer SELFPAY ==
[2018-01-06] MEDS ORDERED: Ketamine 50 mg/ml Inj (10 ml) ONE (09:10)
[2018-01-06] MEDS ORDERED: Propofol 10 mg/ml Inj (20 ML) ONE (09:10)
[2018-01-06] MEDS ORDERED: Midazolam 2 MG/2 ML VIAL ONE (09:10)
[2018-01-06 09:21] VITALS: BMI 25.4
[2018-01-06] MEDS ORDERED: Iodixanol 320 MG/ML 100 ML BOTTLE IV ONE (09:28)
--- NOTE | 2018-01-06 09:28 | CP.SDSHP ---
Same Day Surgery H & P - History Proposed Procedure: Uterine artery embolization Pre-Op Diagnosis: Uterine fibroids, anemia - Allergies Allergies: Allergies No Known Allergies Allergy (Verified 01/06/18 09:21) - Physical Exam Mental Status: Alert & Oriented x3 Neuro: WNL Heart: WNL Lungs: WNL GI: WNL - {Optional Preform as Required} Abdomen: WNL - Impression Impression: Pt with uterine fibroids and resultant dysfunctional uterine bleeding and pelvic pain and pressure. Pt is anemic and has had multiple blood transfusions. She presents for bilateral uterine artery embolization. The procedure and it's associated risks and benefits were discussed with the patient during the initial consultation and again today. Questions from patient and her were answered. Pt. Evaluated Today:Candidate for Anesthesia & Procedure: Yes (ASA 3 Malampati 3) - Date & Time Date: 01/06/18 Time: 09:25 Short Stay Discharge - Short Stay Discharge Admitting Diagnosis/Reason for Visit: N92.1, D25.9 Disposition: HOME/ ROUTINE Referrals: FAMILY PROVIDER,NO [Primary Care Provider] -
[2018-01-06] MEDS ORDERED: Lidocaine 1% Inj (20ml) ONE (09:32)
[2018-01-06] MEDS ORDERED: Iodixanol 320 mg/ml 50 ml Sol IV ONE (10:14)
--- NOTE | 2018-01-06 10:39 | PCM.SURG1 ---
Surgeon's Initial Post Op Note - Surgeon's Notes Surgeon: Fili Cates MD Power Plant Technician: NONE Type of Anesthesia: IV Sedation Pre-Operative Diagnosis: Uterine fibroids Operative Findings: Bilateral uterine artery patent, right greater than right. No collaterals seens. Post-Operative Diagnosis: Uterine fibroids Operation Performed: Bilateral uterine artery embolization with embospheres 500- 700 microns. Specimen/Specimens Removed: NONE Estimated Blood Loss: EBL {In ML}: 5 Blood Products Given: N/A Drains Used: No Drains Post-Op Condition: Fair Date of Surgery/Procedure: 01/06/18 Time of Surgery/Procedure: 10:30
[2018-01-06] MEDS ORDERED: Lactated Ringer's 1,000 ML IV ONE (10:40)
[2018-01-06] MEDS ORDERED: HYDROmorphone 1 mg/ml ISec IVP PRN (10:41)
[2018-01-06] MEDS ORDERED: HYDROmorphone 0.5 mg/0.5 ml ISec IVP PRN (10:50)
--- NOTE | 2018-01-06 14:00 | VASCULAR ---
PROCEDURE: Date of procedure: 01/06/2018 Procedure: 1. Bilateral uterine artery embolization (CPT 81512) 2. Selective catheterization of left uterine artery (3rd order catheterization) 3. Selective catheterization of the right uterine artery (3rd order catherization) MEDICATIONS: Patient sedated by anesthesiologist along with physiologic monitoring, Toradol 30 milligrams x 2 during procedure, and the 1 gram, 8 cubic centimeters lidocaine 1 percent Fluoro time: 547.5 seconds Radiation: 382.04 mGy HISTORY: Uterine leiomyomas (218.9), dysfunctional bleeding, anemia TECHNIQUE: Following informed consent the procedure time-out, patient placed supine on the interventional table. Her right groin was prepped and draped in the usual sterile fashion. Following informed consent, the right common femoral artery was accessed with micropuncture technique and a guidewire was advanced under fluoroscopic guidance into the abdominal aorta. Through a 5French vascular sheath, a 5 [place]an cobra glide catheter was advanced over the wire and used to select the left internal iliac artery. A pelvic angiogram was performed in the CROATIAN projection. The pelvic angiogram showed a very tortuous and dilated left uterine artery arising from the anterior division of the left internal iliac artery. The left uterine artery was then catheterized with a 5 [place]an cobra glide catheter. A selective left uterine artery angiogram was performed. Left uterine artery angiogram showed a hypovascular fibroid uterus. With a Cobra catheter position within the left urine arteries, the artery was embolized with a embospheres micro spheres measuring 500-700 microns until near stasis of blood was achieved both before and after 5-minutes waiting period. Post embolization angiogram showed the delayed filling of the left uterine artery. The cobra glide catheter was then positioned within the ipsilateral right internal iliac artery and a pelvic angiogram was performed in the SAMAYOA projection. Pelvic angiogram showed a dilated right uterine artery arising from the anterior division of the right internal iliac artery. Right uterine artery was catheterized with a cobra glide catheter. A selective right uterine artery angiogram was performed. Right uterine artery angiogram showed a hypervascular fibroid uterus. With a Cobra catheter position within the right uterine artery, the right uterine artery was embolized with embospheres microspheres measuring 500-700 microns in diameter on still near stasis multiples achieve both before and after 5-minute waiting period. Post embolization angiogram showed delayed filling of the right uterine artery. IMPRESSION: 1. Tortuous and dilated right and left renal artery which were successfully embolized with embospheres microspheres measuring 500-700 microns. 2. The patient tolerated tolerated procedure well. There were no immediate complications. 3. The patient will be discharged with intervention Radiology followup for assessment of volume reduction and fibroid infarction following embolization.
[2018-01-06 14:52] VITALS: RESP 18
[2018-01-06] MEDS ORDERED: Oxycodone/Acetaminophen 5/325 mg Tab PO ONE ×2 (17:06→17:30)
[2018-01-06 19:28] VITALS: BP 108/78; PULSE 71; TEMP 97.2; O2SAT 94
== END 2018-01-06 18:50 | disposition home or self-care (01) ==
LOC: H.OPSURG 08:35 → H.MEDSURG1 15:41 → H.OPSURG 18:50
PROVIDERS: ATTEND Radiology Vascular & Interventional Radiology
DX: N92.1 Excessive and frequent menstruation with irregular cycle (principal); D25.9 Leiomyoma of uterus, unspecified
CPT/HCPCS: 37243; C1757; C1769; J0131; J0690; J1170; J1885; J2001; J2250; J2704; J3010; J7120; Q9967

== ENCOUNTER 2018-01-29 21:39 | Emergency (ER) | payer SELFPAY ==
[2018-01-29 21:39] VITALS: BMI 25.4
[2018-01-29 21:50] VITALS: BP 138/81; PULSE 63; RESP 16; TEMP 98.6; O2SAT 100
--- NOTE | 2018-01-29 22:44 | ED PDOC ---
HPI: General Adult Time Seen by Provider: 01/29/18 22:02 Chief Complaint (Nursing): ENT Problem Chief Complaint (Provider): Decreased hearing in the left ear x 2 weeks History Per: Patient History/Exam Limitations: no limitations Onset/Duration Of Symptoms: Days Current Symptoms Are (Timing): Still Present Additional Complaint(s): 37 yo female with left ear discomfort and decreased hearing x 2 weeks. PT was seen by her PMD and given antibiotics ear drops and keflex. Pt reports some improvement but not 100%. No headache. No fever/chills No drainage form the ear. Past Medical History Reviewed: Historical Data, Nursing Documentation, Vital Signs Vital Signs: Last Vital Signs Temp 98.6 F 01/29/18 21:47 Pulse 63 01/29/18 21:47 Resp 16 01/29/18 21:47 BP 138/81 01/29/18 21:47 Pulse Ox 100 01/29/18 21:47 - Medical History PMH: Anemia, Anxiety Denies: HIV, Chronic Kidney Disease - Surgical History Surgical History: Cholecystectomy, (x 1) - Family History Family History: States: Unknown Family Hx - Living Arrangements Living Arrangements: With Family - Social History Current smoker - smoking cessation education provided: No - Home Medications Home Medications: Ambulatory Orders Medication Instructions Recorded Ferrous Sulfate 325 mg PO DAILY 09/05/17 Cephalexin [cephalexin] 500 mg PO Q8 01/06/18 Docusate [Colace] 100 mg PO DAILY PRN 01/06/18 Multivitamin [Multiple Vitamins] 1 each PO DAILY 01/06/18 Ondansetron HCl [Zofran] 8 mg PO Q8 PRN 01/06/18 Tramadol HCl [Ultram] 1 tab PO BID PRN 01/06/18 oxyCODONE/Acetaminophen [Percocet 2 tab PO Q6 PRN 01/06/18 5/325 mg Tab] Amoxicillin/Clavulanate [Augmentin 1 tab PO BID #20 tab 01/29/18 875 MG-125 MG] - Allergies Allergies/Adverse Reactions: Allergies Allergy/AdvReac Type Severity Reaction Status Date / Time No Known Allergies Allergy Verified 01/06/18 09:21 Review of Systems ROS Statement: Except As Marked, All Systems Reviewed And Found Negative Constitutional: Negative for: Fever, Chills ENT: Positive for: Ear Pain. Negative for: Ear Discharge Physical Exam - Reviewed Nursing Documentation Reviewed: Yes Vital Signs Reviewed: Yes - Physical Exam Appears: Positive for: Well, Non-toxic, No Acute Distress Head Exam: Positive for: ATRAUMATIC, NORMAL INSPECTION, NORMOCEPHALIC Skin: Positive for: Normal Color, Warm, DRY Eye Exam: Positive for: Normal appearance ENT: Positive for: Normal ENT Inspection, TM Is/Are (mild erythema, no perforation - Left) Neck: Positive for: Normal, Painless ROM Cardiovascular/Chest: Positive for: Regular Rate, Rhythm Respiratory: Positive for: Normal Breath Sounds. Negative for: Accessory Muscle Use, Respiratory Distress Back: Positive for: Normal Inspection Extremity: Positive for: Normal ROM. Negative for: Tenderness Neurologic/Psych: Positive for: Alert, Oriented, Gait - ECG O2 Sat by Pulse Oximetry: 100 Medical Decision Making Medical Decision Making: Discussed changing keflex with Augmentin and f/u with ENT if symptoms do not improve. Disposition - Clinical Impression Clinical Impression: Left ear pain - Patient ED Disposition Is Patient to be Admitted: No Counseled Patient/Family Regarding: Diagnosis, Need For Followup - Disposition Disposition: Routine/Home Disposition Time: 22:45 Condition: GOOD Prescriptions: Amoxicillin/Clavulanate [Augmentin 875 MG-125 MG] 1 tab PO BID #20 tab Instructions: Ear Infections (Otitis Media)
== END 2018-01-29 23:07 | disposition home or self-care (01) ==
LOC: H.ER 21:39
DX: H66.92 Otitis media, unspecified, left ear (principal); F41.9 Anxiety disorder, unspecified

== ENCOUNTER 2018-09-19 12:23 | Emergency (ER) | payer SELFPAY ==
[2018-09-19 12:23] VITALS: BMI 25.4
[2018-09-19 12:45] VITALS: BP 147/98; PULSE 69; RESP 16; TEMP 98.2; O2SAT 100
--- NOTE | 2018-09-19 13:02 | ED PDOC ---
HPI: Influenza Time Seen by Provider: 09/19/18 12:50 Chief Complaint: Flu-like Symptoms Chief Complaint (Provider): Flu-like Symptoms History Per: Patient Exam Limitations: no limitations Onset/Duration Of Symptoms: Days (x2) Additional complaint(s):: 38 year old female presents to the ED for evaluation of cough, sore throat, and tactile fever for the past two days. Otherwise denies nausea, vomiting, diarrhea, and abdominal pain. Positive flu contact at home. PMD: none provided Past Medical History Reviewed: Historical Data, Nursing Documentation, Vital Signs Vital Signs: Last Vital Signs Temp 98.2 F 09/19/18 12:43 Pulse 69 09/19/18 12:43 Resp 16 09/19/18 12:43 BP 147/98 H 09/19/18 12:43 Pulse Ox 100 09/19/18 12:43 - Medical History PMH: Anemia, Anxiety Denies: HIV, Chronic Kidney Disease - Surgical History Surgical History: Cholecystectomy, (x 1) - Family History Family History: States: Unknown Family Hx - Social History Current smoker - smoking cessation education provided: No Alcohol: None Drugs: Denies - Home Medications Home Medications: Ambulatory Orders Medication Instructions Recorded Ferrous Sulfate 325 mg PO DAILY 09/05/17 Cephalexin [cephalexin] 500 mg PO Q8 01/06/18 Docusate [Colace] 100 mg PO DAILY PRN 01/06/18 Multivitamin [Multiple Vitamins] 1 each PO DAILY 01/06/18 Ondansetron HCl [Zofran] 8 mg PO Q8 PRN 01/06/18 Tramadol HCl [Ultram] 1 tab PO BID PRN 01/06/18 oxyCODONE/Acetaminophen [Percocet 2 tab PO Q6 PRN 01/06/18 5/325 mg Tab] Amoxicillin/Clavulanate [Augmentin 1 tab PO BID #20 tab 01/29/18 875 MG-125 MG] Acetaminophen [Acetaminophen Extra 2 tab PO Q6 PRN #24 tablet 09/19/18 Strength] Ibuprofen [Motrin Tab] 800 mg PO Q8 PRN #21 tab 09/19/18 Oseltamivir Cap [Tamiflu] 75 mg PO BID #9 cap 09/19/18 - Allergies Allergies/Adverse Reactions: Allergies Allergy/AdvReac Type Severity Reaction Status Date / Time No Known Allergies Allergy Verified 09/19/18 12:42 Review of Systems ROS Statement: Except As Marked, All Systems Reviewed And Found Negative Constitutional: Positive for: Fever (tactile) ENT: Positive for: Throat Pain Respiratory: Positive for: Cough Gastrointestinal: Negative for: Nausea, Vomiting, Abdominal Pain, Diarrhea Physical Exam - Reviewed Nursing Documentation Reviewed: Yes Vital Signs Reviewed: Yes - Physical Exam Appears: Positive for: No Acute Distress Head Exam: Positive for: ATRAUMATIC, NORMOCEPHALIC Skin: Positive for: Normal Color, Warm Eye Exam: Positive for: Normal appearance ENT: Positive for: Normal ENT Inspection Neck: Positive for: Normal, Painless ROM, Supple Cardiovascular/Chest: Positive for: Regular Rate, Rhythm Respiratory: Positive for: Normal Breath Sounds. Negative for: Respiratory Distress Neurologic/Psych: Positive for: Alert, Oriented (x3) Medical Decision Making Medical Decision Making: Time: 1253 Initial Impression: flu-like symptoms Initial Plan: --Tamiflu 75mg PO --Rapid strep test --Rapid flu swab Scribe Attestation: Documented by Afua Talley acting as a scribe for Susana Ma PA-C. Provider Scribe Attestation: All medical record entries made by the Scribe were at my direction and personally dictated by me. I have reviewed the chart and agree that the record accurately reflects my personal performance of the history, physical exam, medical decision making, and the department course for this patient. I have also personally directed, reviewed, and agree with the discharge instructions and disposition. - ECG O2 Sat by Pulse Oximetry: 100 (RA) Pulse Ox Interpretation: Normal - Progress ED Course And Treament: FLU A positive tamiflu 75 mg x 1 dose given Disposition - Clinical Impression Clinical Impression: Influenza A - Patient ED Disposition Is Patient to be Admitted: No - Disposition Referrals: [facility] [Outside] Disposition: Routine/Home Disposition Time: 13:38 Condition: FAIR Prescriptions: Acetaminophen [Acetaminophen Extra Strength] 2 tab PO Q6 PRN #24 tablet PRN Reason: Fever >100.4 F Ibuprofen [Motrin Tab] 800 mg PO Q8 PRN #21 tab PRN Reason: Fever >100.4 F Oseltamivir Cap [Tamiflu] 75 mg PO BID #9 cap Instructions: Flu, Adult (DC) Forms: [facility] ED School/Work Excuse Print Language: CITIZ[place]
== END 2018-09-19 13:53 | disposition home or self-care (01) ==
LOC: H.ER 12:23
DX: J09.X2 Influenza due to identified novel influenza A virus with other respiratory manifestations (principal)